=== PATIENT | female | born 1965 | race Caucasian/White ===

== ENCOUNTER 2019-03-24 20:32 | Emergency (ER) | payer MEDICAID ==
[2019-03-24] MEDS ORDERED: Ketorolac 60 MG/2 ML SDV IM ONE (20:55)
--- NOTE | 2019-03-24 20:59 | EDM.PDOC ---
ED HPI GENERAL MEDICAL PROBLEM - General Chief Complaint: Back Pain or Injury Stated Complaint: BACK PAIN Time Seen by Provider: 03/24/19 20:49 Source of Information: Reports: Patient History Limitations: Reports: No Limitations - History of Present Illness INITIAL COMMENTS - FREE TEXT/NARRATIVE: HISTORY AND PHYSICAL: History of present illness: Patient is a 53-year-old female who presents to the ED today with concern of her tailbone injury that occurred this morning. Patient states she was pushing her mom up a ramp in a wheelchair when she had slipped and fell directly on her butt. Patient states initially she did not feel much pain but as the day has gone she's had worsening pain of her tailbone. Patient states the pain is directly in between her crack and hurts when she does present on her tailbone. Patient denies any loss or retention of bowel or bladder function or any saddle anesthesia. Patient denies any prior injury to the area. Patient denies fever, chills, chest pain, shortness of breath, or cough. Denies headache, neck stiff ness, change in vision, syncope, or near syncope. Denies nausea, vomiting, abdominal pain, diarrhea, constipation, or dysuria. Has not noted any blood in urine or stool. Patient has been eating and drinking appropriately. Review of systems: As per history of present illness and below otherwise all systems reviewed and negative. Past medical history: As per history of present illness and as reviewed below otherwise noncontributory. Surgical history: As per history of present illness and as reviewed below otherwise noncontributory. Social history: See social history for further information Family history: As per history of present illness and as reviewed below otherwise noncontributory. Physical exam: General: Patient is alert, oriented, and in no acute distress. Patient sitting comfortably on exam table. HEENT: Atraumatic, normocephalic, pupils equal and reactive bilaterally, negative for conjunctival pallor or scleral icterus, mucous membranes moist, TMs normal bilaterally, throat clear, neck supple, nontender, trachea midline. No drooling or trismus noted. No meningeal signs. No hot potato voice noted. Lungs: Clear to auscultation, breath sounds equal bilaterally, chest nontender. Heart: S1S2, regular rate and rhythm without overt murmur Abdomen: Soft, nondistended, nontender. Negative for masses or hepatosplenomegaly. Negative for costovertebral tenderness. Pelvis: Stable nontender. Genitourinary: Deferred. Rectal: Deferred. Skin: Intact, warm, dry. No lesions or rashes noted. Extremities/musculoskeletal: Negative for cords or calf pain. Neurovascular unremarkable. Negative pain to palpation of the spinous process of complete spine. Patient has full range of motion of cervical spine. Thoracic and lumbar spine range of motion is limited due to pain of the lumbar spine. Patient does have direct pain to palpation of the coccyx. No obvious deformities, step-offs, or crepitus noted of complete spine. Neuro: Awake, alert, oriented. Cranial nerves II through XII unremarkable. Cerebellum unremarkable. Motor and sensory unremarkable throughout. Exam nonfocal. Notes: Dr. Howard verbally involved in patient care. Discussed the importance for follow-up with a primary care provider. Voices understanding and is agreeable to plan of care. Denies any further questions or concerns at this time. Diagnostics: Coccyx x-ray, lumbar x-ray Therapeutics: Toradol Prescription: [place] #20 Impression: Transverse process fracture of L4 Plan: 1. Rest, ice, elevate the affected area. You can apply ice and/or heat 15 minutes on, 15 minutes off. 2. Tylenol and/or Ibuprofen as directed for pain management or discomfort. Take medications as prescribed for moderate to severe pain. Caution with function outside home and do not take and operate/drive machinery/equipment. 3. Follow up with your primary care provider / orthopedic provider as discussed. Return to the ED as needed and as discussed. Definitive disposition and diagnosis as appropriate pending reevaluation and review of above. Lower Back Pain Score (Numeric/FACES): 8 - Related Data Allergies Allergy/AdvReac Type Severity Reaction Status Date / Time No Known Allergies Allergy Verified 03/24/19 20:48 Home Meds: Home Meds . [No Known Home Meds] 03/24/19 [History] Past Medical History - Past Health History Medical/Surgical History: Denies Medical/Surgical History - Infectious Disease History Infectious Disease History: Reports: Measles Social & Family History - Tobacco Use Smoking Status *Q: Current Every Day Smoker Years of Tobacco use: 30 Packs/Tins Daily: 0.5 - Caffeine Use Caffeine Use: Reports: Coffee, Soda - Recreational Drug Use Recreational Drug Use: No ED ROS GENERAL - Review of Systems Review Of Systems: ROS reveals no pertinent complaints other than HPI. ED EXAM,LOWER BACK PAIN/INJURY - Physical Exam Exam: See Below (See dictation) Course - Vital Signs Last Recorded V/S: Last Vital Signs Temp 37.1 C 03/24/19 20:45 Pulse 85 03/24/19 20:45 Resp BP 161/101 H 03/24/19 20:45 Pulse Ox 96 03/24/19 20:45 - Orders/Labs/Meds Meds: Medications Discontinued Medications Generic Name Dose Route Start Last Admin Trade Name Caty PRN Reason Stop Dose Admin Ketorolac Tromethamine 60 mg 03/24/19 20:55 03/24/19 21:13 Toradol IM 03/24/19 20:56 60 mg ONETIME ONE Administration Departure - Departure Time of Disposition: 22:52 Disposition: Home, Self-Care 01 Clinical Impression: Lumbar transverse process fracture Qualifiers: Encounter type: initial encounter Fracture type: closed Qualified Code(s): S32.009A - Unspecified fracture of unspecified lumbar vertebra, initial encounter for closed fracture - Discharge Information Instructions: Transverse Process Fracture Referrals: Pedro Stark MD [Primary Care Provider] - Forms: ED Department Discharge Additional Instructions: The following information is given to patients seen in the emergency department who are being discharged to home. This information is to outline your options for follow-up care. We provide all patients seen in our emergency department with a follow-up referral. The need for follow-up, as well as the timing and circumstances, are variable depending upon the specifics of your emergency department visit. If you don't have a primary care physician on staff, we will provide you with a referral. We always advise you to contact your personal physician following an emergency department visit to inform them of the circumstance of the visit and for follow-up with them and/or the need for any referrals to a consulting specialist. The emergency department will also refer you to a specialist when appropriate. This referral assures that you have the opportunity for follow-up care with a specialist. All of these measure are taken in an effort to provide you with optimal care, which includes your follow-up. Under all circumstances we always encourage you to contact your private physician who remains a resource for coordinating your care. When calling for follow-up care, please make the office aware that this follow-up is from your recent emergency room visit. If for any reason you are refused follow-up, please contact the [facility] Emergency Department at and asked to speak to the emergency department charge nurse. [facility] [address] [place] [address] [address] 1. Rest, ice, elevate the affected area. You can apply ice and/or heat 15 minutes on, 15 minutes off. 2. Tylenol and/or Ibuprofen as directed for pain management or discomfort. Take medications as prescribed for moderate to severe pain. Caution with function outside home and do not take and operate/drive machinery/equipment. 3. Follow up with your primary care provider / orthopedic provider as discussed. Return to the ED as needed and as discussed.
--- NOTE | 2019-03-24 21:51 | CR ---
Indication: Fall Technique: Four views of the sacrum and coccyx Comparison: None available Findings/Impression. : No displaced fracture seen. No dislocation. Apparent sclerosis adjacent to the right sacroiliac joint may be reactive. Patent sacroiliac joints. Pelvic phleboliths. Dictated by Wilbert Molina MD @ 03/24/2019 9:51:11 PM Dictated by: Wilbert Molina MD @ 03/24/2019 21:51:16 (Electronically Signed)
--- NOTE | 2019-03-24 21:58 | CR ---
INDICATION: Fall TECHNIQUE: Lumbar spine 3 view. COMPARISON: None available FINDINGS/IMPRESSION: Unremarkable lumbar spine alignment. No significant compression deformity. Preserved disk spaces. An apparent fracture of the tip of the left L4 transverse process. A curvilinear lucency in the region of the right L2 transverse process tip could represent a fracture or may be related to overlying soft tissues. Correlate for focal tenderness. Hypertrophic degenerative changes in the lower lumbar facets. Few tiny anterior osteophytes. Dictated by Wilbert Molina MD @ 03/24/2019 9:55:39 PM Dictated by: Wilbert Molina MD @ 03/24/2019 21:55:44 (Electronically Signed)
== END 2019-03-24 23:19 | disposition home or self-care (01) ==
LOC: MW.ED 20:32
DX: S32.049A Unspecified fracture of fourth lumbar vertebra, initial encounter for closed fracture (principal); F17.210 Nicotine dependence, cigarettes, uncomplicated; W01.0XXA Fall on same level from slipping, tripping and stumbling without subsequent striking against object, initial encounter
CPT/HCPCS: 72100; 72220; 96372; 99284; J1885

== ENCOUNTER 2019-12-04 20:04 | Inpatient (IN) | payer MEDICAID ==
[2019-12-04] MEDS ORDERED: Sodium Chloride 0.9% 1,000 ML IV ONE (20:12)
[2019-12-04] MEDS ORDERED: Diltiazem 25 MG/5 ML SDV IVPUSH ONE (20:20)
[2019-12-04 20:42] LABS: BLOOD UREA NITROGEN,BUN 9 mg/dL (7.0-18.0); CARBON DIOXIDE,CO2 28.8 mmol/L (21.0-32.0); CHLORIDE,CL 103 mmol/L (98-107); GLUCOSE RANDOM 129 mg/dL (74-106); POTASSIUM,K 4.4 mmol/L (3.5-5.1); SODIUM,NA 139 mmol/L (136-145)
--- NOTE | 2019-12-04 20:56 | CR ---
Chest: Portable view of the chest was obtained. Comparison: No prior chest x-ray. Heart size is normal. Upper mediastinum is normal. Lungs show no acute parenchymal change. Bony structures are grossly intact. Impression: 1. Nothing acute is appreciated on portable chest x-ray. Diagnostic code #1 This report was dictated in Mountain Standard Time
--- NOTE | 2019-12-04 21:37 | EDM.PDOC ---
ED HPI GENERAL MEDICAL PROBLEM - General Chief Complaint: Cardiovascular Problem Stated Complaint: HEART RATE,BLURRY VISION Time Seen by Provider: 12/04/19 20:10 Source of Information: Reports: Patient History Limitations: Reports: No Limitations - History of Present Illness INITIAL COMMENTS - FREE TEXT/NARRATIVE: 54-year-old female presents to the emergency room with rapid heart rate. Patient patient was very anxious had positive chest pain shortness of breath. Onset: Today Duration: Hour(s):, Heavy Location: Reports: Chest Quality: Reports: Pressure Severity: Moderate Improves with: Reports: None Worsens with: Reports: None Associated Symptoms: Reports: No Other Symptoms chest Pain Score (Numeric/FACES): 4 - Related Data Allergies Allergy/AdvReac Type Severity Reaction Status Date / Time No Known Allergies Allergy Verified 12/04/19 20:11 Home Meds: Home Meds . [No Known Home Meds] 03/24/19 [History] Past Medical History - Past Health History Medical/Surgical History: Denies Medical/Surgical History - Infectious Disease History Infectious Disease History: Reports: Measles - Past Surgical History Musculoskeletal Surgical History: Reports: Arthroscopic Knee Social & Family History - Family History Family Medical History: Noncontributory - Tobacco Use Smoking Status *Q: Current Every Day Smoker Years of Tobacco use: 30 Packs/Tins Daily: 1 - Caffeine Use Caffeine Use: Reports: Coffee, Soda - Recreational Drug Use Recreational Drug Use: No ED ROS GENERAL - Review of Systems Review Of Systems: Comprehensive ROS is negative, except as noted in HPI. Constitutional: Reports: No Symptoms, Weakness HEENT: Reports: No Symptoms Respiratory: Reports: No Symptoms Cardiovascular: Reports: Lightheadedness Endocrine: Reports: No Symptoms GI/Abdominal: Reports: No Symptoms : Reports: No Symptoms Musculoskeletal: Reports: No Symptoms Skin: Reports: No Symptoms Neurological: Reports: No Symptoms Psychiatric: Reports: No Symptoms Hematologic/Lymphatic: Reports: No Symptoms ED EXAM, GENERAL - Physical Exam Exam: See Below Free Text/Narrative:: This 54-year-old female with a rapid heart rate in the 178 in A. fib. Physical exam HEENT is normal Chest normal S1-S2 rapid rate Lungs clear to auscultation Abdomen soft nontender General Appearance: Alert, WD/WN, No Apparent Distress Eye Exam: Bilateral Eye: Normal Fundi, Normal Inspection, PERRL Ear Exam: Bilateral Ear: Auricle Normal, Canal Normal, TM normal Nose: Normal Inspection Throat/Mouth: Normal Inspection, Normal Lips, Normal Voice, No Airway Compromise Head: Atraumatic, Normocephalic Neck: Normal Inspection, Supple, Non-Tender, Full Range of Motion Respiratory/Chest: No Respiratory Distress, Lungs Clear, Normal Breath Sounds, No Accessory Muscle Use, Chest Non-Tender Cardiovascular: No Edema, No Murmur, Tachycardia, Irregularly Irregular GI/Abdominal: Normal Bowel Sounds, Soft, Non-Tender, No Organomegaly, No Abnormal Bruit, No Mass (Female) Exam: Deferred Rectal (Female) Exam: Deferred Back Exam: Normal Inspection, Full Range of Motion Extremities: Normal Inspection, Normal Range of Motion, Non-Tender, No Pedal Edema Neurological: Alert, Oriented, CN II-XII Intact, Normal Cognition Psychiatric: Normal Affect, Normal Mood Skin Exam: Warm, Dry, Intact, Normal Color, No Rash Lymphatic: No Adenopathy EKG INTERPRETATION Rhythm: A-Fib (A. fib rate of 180 after medication the rate is 80 but patient still in A. fib) Course - Vital Signs Last Recorded V/S: Last Vital Signs Temp 97 F 12/04/19 20:04 Pulse 82 12/04/19 20:57 Resp 16 12/04/19 20:57 BP 147/80 H 12/04/19 20:57 Pulse Ox 97 12/04/19 20:57 - Orders/Labs/Meds Orders: Active Orders 24 hr Category Date Time Status EKG Documentation Completion [RC] STAT Care 12/04/19 20:20 Active Labs: Laboratory Tests 12/04/19 12/04/19 Range/Units 20:10 20:10 WBC 9.80 (4.0-11.0) K/uL RBC 4.94 (4.30-5.90) M/uL Hgb 16.5 H (12.0-16.0) g/dL Hct 47.4 H (36.0-46.0) % MCV 96.0 (80.0-98.0) fL MCH 33.4 H (27.0-32.0) pg MCHC 34.8 (31.0-37.0) g/dL RDW Std Deviation 43.7 (28.0-62.0) fl RDW Coeff of Daysi 13 (11.0-15.0) % Plt Count 206 (150-400) K/uL MPV 11.20 (7.40-12.00) fL Neut % (Auto) 45.8 L (48.0-80.0) % Lymph % (Auto) 39.9 (16.0-40.0) % [place] % (Auto) 7.6 (0.0-15.0) % Eos % (Auto) 6.3 (0.0-7.0) % Baso % (Auto) 0.4 (0.0-1.5) % Neut # (Auto) 4.5 (1.4-5.7) K/uL Lymph # (Auto) 3.9 H (0.6-2.4) K/uL [place] # (Auto) 0.7 (0.0-0.8) K/uL Eos # (Auto) 0.6 (0.0-0.7) K/uL Baso # (Auto) 0.0 (0.0-0.1) K/uL Nucleated RBC % 0.0 /100WBC Nucleated RBCs # 0 K/uL Sodium 139 (136-145) mmol/L Potassium 4.4 (3.5-5.1) mmol/L Chloride 103 (98-107) mmol/L Carbon Dioxide 28.8 (21.0-32.0) mmol/L BUN 9 (7.0-18.0) mg/dL Creatinine 0.8 (0.6-1.0) mg/dL Est Cr Clr Drug Dosing 84.99 mL/min Estimated GFR (MDRD) > 60.0 ml/min Glucose 129 H (74-106) mg/dL Calcium 8.9 (8.5-10.1) mg/dL Total Bilirubin 0.4 (0.2-1.0) mg/dL AST 81 H (15-37) IU/L ALT 92 H (14-63) IU/L Alkaline Phosphatase 179 H (46-116) U/L Troponin I < 0.050 (0.000-0.056) ng/mL Total Protein 7.9 (6.4-8.2) g/dL Albumin 3.6 (3.4-5.0) g/dL Globulin 4.3 H (2.6-4.0) g/dL Albumin/Globulin Ratio 0.8 L (0.9-1.6) Meds: Medications Discontinued Medications Generic Name Dose Route Start Last Admin Trade Name Freq PRN Reason Stop Dose Admin Diltiazem HCl 25 mg 12/04/19 20:20 12/04/19 20:30 Diltiazem IVPUSH 12/04/19 20:21 25 mg ONETIME ONE Administration Sodium Chloride 1,000 mls @ 1,000 mls/hr 12/04/19 20:12 12/04/19 20:30 Normal Saline IV 12/04/19 21:11 1,000 mls/hr .Bolus ONE Administration Departure - Departure Time of Disposition: 21:40 Disposition: Admitted As Inpatient 67 Condition: Good Clinical Impression: New onset atrial fibrillation Referrals: PCP,Unknown [Primary Care Provider] - Sepsis Event Note - Evaluation Sepsis Screening Result: No Definite Risk - Focused Exam Vital Signs: Vital Signs Temp Pulse Resp BP Pulse Ox 12/04/19 20:57 82 16 147/80 H 97 12/04/19 20:36 109 H 20 124/98 H 97 12/04/19 20:04 97 F 116 H 20 179/97 H 97 Date Exam was Performed: 12/04/19 Time Exam was Performed: 21:31 - My Orders Last 24 Hours: My Active Orders 12/04/19 20:20 EKG Documentation Completion [RC] STAT - Assessment/Plan Last 24 Hours: My Active Orders 12/04/19 20:20 EKG Documentation Completion [RC] STAT
--- NOTE | 2019-12-04 23:48 | PCM.HP.2 ---
H&P History of Present Illness - General Date of Service: 12/05/19 Admit Problem/Dx: Admission Diagnosis/Problem Admission Diagnosis/Problem Atrial fibrillation - History of Present Illness Initial Comments - Free Text/Narative: 54 yo female who presented to the ED with complaint of chest palpitations. The episode started tonight while sitting down. She felt her heart racing with pounding beats. She felt short of breath and lightheaded. It started to come down on its own when she was seen in the ED. In the ED she was noted to be in atrial fibrillation with HR in the 180s. She was given IV diltiazem and a liter of fluid which slowed down her heart rate. She reports have a brief episode of palpitations later this week. She reports drinking 32 oz of coffee in the morning and 5 cans of Mountain dew at night. chest Pain Score (Numeric/FACES): 4 - Related Data Allergies/Adverse Reactions: Allergies Allergy/AdvReac Type Severity Reaction Status Date / Time No Known Allergies Allergy Verified 12/04/19 22:50 Home Medications: Home Meds Aspirin 81 mg PO DAILY tab.chew 12/05/19 [Rx] Metoprolol Tartrate [Lopressor] 50 mg PO BID #60 tablet 12/05/19 [Rx] Past Medical History - Past Health History Medical/Surgical History: Denies Medical/Surgical History - Infectious Disease History Infectious Disease History: Reports: Measles - Past Surgical History Musculoskeletal Surgical History: Reports: Arthroscopic Knee Social & Family History - Family History Family Medical History: Noncontributory - Tobacco Use Smoking Status *Q: Current Every Day Smoker Years of Tobacco use: 30 Packs/Tins Daily: 0.5 Second Hand Smoke Exposure: No - Caffeine Use Caffeine Use: Reports: Coffee, Soda - Recreational Drug Use Recreational Drug Use: No H&P Review of Systems - Review of Systems: Review Of Systems: See Below Exam - Exam Exam: See Below - Vital Signs Vital Signs: Last Vital Signs Temp 36.6 C 12/04/19 22:52 Pulse 91 12/04/19 22:52 Resp 16 12/04/19 22:52 BP 127/77 12/04/19 22:52 Pulse Ox 97 12/04/19 22:52 Weight: 96.6 kg - Exam General: Alert, Oriented HEENT: Mucosa Moist & [place] Neck: Supple Lungs: Clear to Auscultation, Normal Respiratory Effort Cardiovascular: Regular Rate, Irregular Rhythm GI/Abdominal Exam: Normal Bowel Sounds, Soft, No Distention Extremities: Non-Tender, No Pedal Edema Skin: Warm, Dry, Intact - Patient Data Lab Results Last 24 hrs: Laboratory Results - last 24 hr 12/04/19 12/04/19 12/04/19 Range/Units 20:10 20:10 20:10 WBC 9.80 (4.0-11.0) K/uL RBC 4.94 (4.30-5.90) M/uL Hgb 16.5 H (12.0-16.0) g/dL Hct 47.4 H (36.0-46.0) % MCV 96.0 (80.0-98.0) fL MCH 33.4 H (27.0-32.0) pg MCHC 34.8 (31.0-37.0) g/dL RDW Std Deviation 43.7 (28.0-62.0) fl RDW Coeff of Daysi 13 (11.0-15.0) % Plt Count 206 (150-400) K/uL MPV 11.20 (7.40-12.00) fL Neut % (Auto) 45.8 L (48.0-80.0) % Lymph % (Auto) 39.9 (16.0-40.0) % [place] % (Auto) 7.6 (0.0-15.0) % Eos % (Auto) 6.3 (0.0-7.0) % Baso % (Auto) 0.4 (0.0-1.5) % Neut # (Auto) 4.5 (1.4-5.7) K/uL Lymph # (Auto) 3.9 H (0.6-2.4) K/uL [place] # (Auto) 0.7 (0.0-0.8) K/uL Eos # (Auto) 0.6 (0.0-0.7) K/uL Baso # (Auto) 0.0 (0.0-0.1) K/uL Nucleated RBC % 0.0 /100WBC Nucleated RBCs # 0 K/uL Sodium 139 (136-145) mmol/L Potassium 4.4 (3.5-5.1) mmol/L Chloride 103 (98-107) mmol/L Carbon Dioxide 28.8 (21.0-32.0) mmol/L BUN 9 (7.0-18.0) mg/dL Creatinine 0.8 (0.6-1.0) mg/dL Est Cr Clr Drug Dosing 84.99 mL/min Estimated GFR (MDRD) > 60.0 ml/min Glucose 129 H (74-106) mg/dL Calcium 8.9 (8.5-10.1) mg/dL Magnesium 1.8 (1.8-2.4) mg/dL Total Bilirubin 0.4 (0.2-1.0) mg/dL AST 81 H (15-37) IU/L ALT 92 H (14-63) IU/L Alkaline Phosphatase 179 H (46-116) U/L Troponin I < 0.050 (0.000-0.056) ng/mL Total Protein 7.9 (6.4-8.2) g/dL Albumin 3.6 (3.4-5.0) g/dL Globulin 4.3 H (2.6-4.0) g/dL Albumin/Globulin Ratio 0.8 L (0.9-1.6) Result Diagrams: 12/05/19 04:42 12/05/19 04:42 Sepsis Event Note - Evaluation Sepsis Screening Result: No Definite Risk - Focused Exam Vital Signs: Vital Signs Temp Pulse Resp BP Pulse Ox 12/04/19 22:52 36.6 C 91 16 127/77 97 12/04/19 20:57 82 16 147/80 H 97 12/04/19 20:36 109 H 20 124/98 H 97 12/04/19 20:04 36.1 C 116 H 20 179/97 H 97 Date Exam was Performed: 12/05/19 Time Exam was Performed: 11:36 Problem List Initiated/Reviewed/Updated: Yes Orders Last 24hrs: Active Orders 24 hr Category Date Time Status Admission Status [Patient Status] [ADT] Stat ADT 12/04/19 21:41 Active EKG Documentation Completion [RC] STAT Care 12/04/19 20:20 Active Telemetry Monitoring [Cardiac Monitoring] [RC] . Care 12/04/19 21:57 Active DIRECTED BASIC METABOLIC PANEL,BMP [CHEM] AM Lab 12/05/19 05:11 Ordered CBC WITH AUTO DIFF [HEME] AM Lab 12/05/19 05:11 Ordered GLYCOSYLATED HEMOGLOBIN,HGBA1C [CHEM] AM Lab 12/05/19 05:11 Ordered TROPONIN I [CHEM] Q6H Lab 12/05/19 02:00 Ordered TROPONIN I [CHEM] Q6H Lab 12/05/19 08:00 Ordered Metoprolol Tartrate [Lopressor] Med 12/04/19 23:45 Ordered 50 mg PO Q12H Assessment/Plan Comment:: 54 yo female admitted for atrial fibrillation with RVR. She was started on metoprolol 50mg last night and her heart rate has been in atrial flutter/ fibrillation overnight with the heart rate in the 50s-90s overnight. This morning she is feeling well and requesting discharge. She was discharged home on metoprolol 50mg BID and Aspirin. She is to follow up with Dr. Elder and Dr. Stark. She was counseled on the need to quit tobacco and reduce her sugar soda consumption.
[2019-12-05] MEDS: Metoprolol Tartrate 50 MG Tab PO SCH ×2 (00:27→08:01)
[2019-12-05 05:38] LABS: BLOOD UREA NITROGEN,BUN 11 mg/dL (7.0-18.0); CARBON DIOXIDE,CO2 24.8 mmol/L (21.0-32.0); CHLORIDE,CL 106 mmol/L (98-107); GLUCOSE RANDOM 107 mg/dL (74-106); POTASSIUM,K 3.9 mmol/L (3.5-5.1); SODIUM,NA 141 mmol/L (136-145)
[2019-12-05 05:43] LABS: HEMOGLOBIN A1C 6.3 % (4.5-6.2)
[2019-12-05] MEDS ORDERED: Aspirin 81 MG Tab.Chew PO SCH (09:00)
== END 2019-12-05 13:00 | disposition home or self-care (01) | DRG 310 ==
LOC: MW.ED 20:04 → MW.MS 22:01
PROVIDERS: ADMIT Internal Medicine; ATTEND Internal Medicine
DX: I48.91 Unspecified atrial fibrillation (principal); F17.210 Nicotine dependence, cigarettes, uncomplicated; Z79.82 Long term (current) use of aspirin; Z79.899 Other long term (current) drug therapy
CPT/HCPCS: 36415; 71045; 71045-26; 80048; 80053; 80061; 83036; 83735; 84484; 85025; 93005; 96361; 96374; 99283; 99285-25; A9270-GY; J3490; J7030

== ENCOUNTER 2020-12-05 13:21 | Emergency (ER) | payer MEDICAID ==
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
--- NOTE | 2020-12-05 15:07 | CR ---
INDICATION: Medial pain, trauma 12/03/2020 TECHNIQUE: Three views right knee COMPARISON: None FINDINGS: Bones: Alignment is normal. No fractures or bone lesions. Joint spaces: Degenerative changes medial and patellofemoral compartments. Marginal osteophytes involving all 3 compartments. Joint effusion. Soft tissues: Unremarkable. IMPRESSION: No evidence of acute trauma. Multi compartment degenerative changes with joint effusion. Dictated by Yves Lo MD @ Dec 05 2020 3:05PM Signed by Dr. Yves Lo @ Dec 05 2020 3:05PM
== END 2020-12-05 15:15 | disposition home or self-care (01) ==
LOC: MW.ED 13:21
DX: S86.911A Strain of unspecified muscle(s) and tendon(s) at lower leg level, right leg, initial encounter (principal); I48.91 Unspecified atrial fibrillation; I10 Essential (primary) hypertension; Z87.891 Personal history of nicotine dependence; X50.9XXA Other and unspecified overexertion or strenuous movements or postures, initial encounter
CPT/HCPCS: 73562-26-RT; 73562-RT; 99283; 99283-25

== ENCOUNTER 2020-12-25 11:45 | Inpatient (IN) | payer MEDICAID ==
[~2020-12-25 11:45] MED LIST: Famotidine 20 MG/2 ML SDV IVPUSH SCH; Lactated Ringers 1,000 ML IV SCH; Ropivacaine 49.25 ML, Ketorolac 30 MG, EPINEPHrine 0.5 MG, cloNIDine 80 MCG in Sodium C... INJECT SCH; Scopolamine 1.5 MG Transdermal Patch TRDERM SCH; ceFAZolin 2 GM in Premix Bag 1 BAG IV SCH
[2021-01-01] MEDS ORDERED: Famotidine 20 MG/2 ML SDV IVPUSH SCH (06:00)
[2021-01-01] MEDS ORDERED: Lactated Ringers 1,000 ML IV SCH (06:00)
[2021-01-01] MEDS ORDERED: Scopolamine 1.5 MG Transdermal Patch TRDERM SCH (06:00)
[2021-01-01] MEDS ORDERED: Ropivacaine 49.25 ML, Ketorolac 30 MG, EPINEPHrine 0.5 MG, cloNIDine 80 MCG in Sodium C... INJECT SCH (06:00)
[2021-01-01] MEDS ORDERED: ceFAZolin 2 GM in Premix Bag 1 BAG IV SCH (08:00)
[2021-01-01] MEDS ORDERED: Scopolamine 1.5 MG Transdermal Patch ONE (09:58)
[2021-01-01] MEDS ORDERED: Famotidine 20 MG/2 ML SDV ONE (10:02)
[2021-01-01] MEDS ORDERED: Propofol 200 MG/20 ML SDV ONE (10:12)
[2021-01-01] MEDS ORDERED: fentaNYL 100 MCG/2 ML SDV ONE (10:12)
[2021-01-01] MEDS ORDERED: Midazolam 1 MG/ML 2 ML SDV ONE (10:12)
--- NOTE | 2021-01-01 11:54 | PCM.PREANE ---
Preanesthetic Assessment - Anesthesia/Transfusion/Family Hx Anesthesia History: Prior Anesthesia Without Reaction Family History of Anesthesia Reaction: No Transfusion History: No Prior Transfusion(s) Intubation History: Unknown - Review of Systems General: No Symptoms Pulmonary: No Symptoms Cardiovascular: No Symptoms Gastrointestinal: No Symptoms Neurological: No Symptoms Other: Reports: None - Physical Assessment Vital Signs: Last Vital Signs Temp 36.6 C 01/01/21 11:24 Pulse 69 01/01/21 11:24 Resp 16 01/01/21 11:24 BP 130/81 01/01/21 11:24 Pulse Ox 96 01/01/21 11:24 Height: 5 ft 9 in Weight: 95.708 kg ASA Class: 2 Mental Status: Alert & Oriented x3 Airway Class: Mallampati = 1 Dentition: Reports: Dentures (upper and lower, well glued in) Thyro-Mental Finger Breadths: 3 Mouth Opening Finger Breadths: 3 ROM/Head Extension: Full Lungs: Clear to Auscultation, Normal Respiratory Effort Cardiovascular: Regular Rate, Regular Rhythm - Allergies Allergies/Adverse Reactions: Allergies Allergy/AdvReac Type Severity Reaction Status Date / Time No Known Allergies Allergy Verified 12/23/20 08:35 - Blood Blood Available: No - Anesthesia Plan Pre-Op Medication Ordered: None - Acknowledgements Anesthesia Type Planned: Spinal (femoral block for postoperative pain control) Pt an Appropriate Candidate for the Planned Anesthesia: Yes Alternatives and Risks of Anesthesia Discussed w Pt/Guardian: Yes Pt/Guardian Understands and Agrees with Anesthesia Plan: Yes PreAnesthesia Questionnaire - Past Health History Medical/Surgical History: Denies Medical/Surgical History HEENT History: Reports: Other (See Below) Other HEENT History: wears glasses/contacts, has top & bottom dentures Cardiovascular History: Reports: Afib, Hypertension Other Cardiovascular History: 1 episode of A-fib approx 2 years ago Respiratory History: Reports: None Gastrointestinal History: Reports: None Genitourinary History: Reports: None 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: 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: None Musculoskeletal History: Reports: Arthritis Neurological History: Reports: None Psychiatric History: Reports: None Endocrine/Metabolic History: Reports: Obesity/BMI 30+ (BMI 31.2) Hematologic History: Reports: None Immunologic History: Reports: None Oncologic (Cancer) History: Reports: None Dermatologic History: Reports: None - Infectious Disease History Infectious Disease History: Reports: Measles - Past Surgical History Head Surgeries/Procedures: Reports: None HEENT Surgical History: Reports: Tonsillectomy Cardiovascular Surgical History: Reports: None Respiratory Surgical History: Reports: None GI Surgical History: Reports: None Female Surgical History: Reports: Other (See Below) Other Female Surgeries/Procedures: hx of diagnostic laparoscopy Endocrine Surgical History: Reports: None Neurological Surgical History: Reports: None Musculoskeletal Surgical History: Reports: Arthroscopic Knee (rt. knee '93) Oncologic Surgical History: Reports: None Dermatological Surgical History: Reports: None - SUBSTANCE USE Tobacco Use Status *Q: Former Tobacco User (quit 40 days ago) Tobacco Use Within Last Twelve Months: Cigarettes - HOME MEDS Home Medications: Home Meds Acetaminophen [Tylenol] 2 tab PO ASDIRECTED PRN 12/23/20 [History] Aspirin [Adult Aspirin Regimen] 81 mg PO DAILY 12/23/20 [History] Metoprolol Tartrate 100 mg PO DAILY 12/23/20 [History] - CURRENT (IN HOUSE) MEDS Current Meds: Current Medications Famotidine (Pepcid) 40 mg IVPUSH ONARRIVE KELSEY Lactated Ringer's (Ringers, Lactated) 1,000 mls @ 100 mls/hr IV ASDIRECTED KELSEY Last Admin: 01/01/21 11:29 Dose: 100 mls/hr Documented by: Cefazolin Sodium/Dextrose 2 gm (/ Premix) 50 mls @ 100 mls/hr IV ONCALL KELSEY Ropivacaine 49.25 ml/Ketorolac Tromethamine 30 mg/Epinephrine HCl 0.5 mg/Clonidine HCl 80 mcg/ Sodium Chloride 75 mls @ 50 mls/sec INJECT ASDIRECTED KELSEY Scopolamine (Transderm-Scop) 1.5 mg TRDERM ONARRIVE KELSEY Discontinued Medications Famotidine (Pepcid) 40 mg IVPUSH ONARRIVE KELSEY Famotidine (Pepcid) Confirm Administered Dose 40 mg .ROUTE .STK-MED ONE Stop: 01/01/21 10:03 Last Admin: 01/01/21 11:32 Dose: 40 mg Documented by: Fentanyl (Sublimaze) Confirm Administered Dose 100 mcg .ROUTE .STK-MED ONE Stop: 01/01/21 10:13 Ropivacaine 49.25 ml/Ketorolac Tromethamine 30 mg/Epinephrine HCl 0.5 mg/Clonidine HCl 80 mcg/ Sodium Chloride 75 mls @ 50 mls/sec INJECT ASDIRECTED KELSEY Cefazolin Sodium/Dextrose 2 gm (/ Premix) 50 mls @ 100 mls/hr IV ONCALL KELSEY Lactated Ringer's (Ringers, Lactated) 1,000 mls @ 100 mls/hr IV ASDIRECTED KELSEY Lidocaine HCl (Xylocaine-Mpf 1%) Confirm Administered Dose 5 ml .ROUTE .STK-MED ONE Stop: 01/01/21 10:13 Midazolam HCl (Versed 1 Mg/Ml) Confirm Administered Dose 2 mg .ROUTE .STK-MED ONE Stop: 01/01/21 10:13 Propofol (Diprivan 20 Ml) Confirm Administered Dose 200 mg .ROUTE .STK-MED ONE Stop: 01/01/21 10:13 Scopolamine (Transderm-Scop) 1.5 mg TRDERM ONARRIVE [facility] Scopolamine (Transderm-Scop) Confirm Administered Dose 1.5 mg .ROUTE .STK-MED ONE Stop: 01/01/21 09:59 Last Admin: 01/01/21 11:30 Dose: 1.5 mg Documented by: Tranexamic Acid (Cyklokapron) 1,000 mg TOP ASDIRECTED ONE Stop: 12/25/20 06:01 Tranexamic Acid (Cyklokapron) 1,000 mg TOP ASDIRECTED ONE Stop: 01/01/21 06:01
[2021-01-01] MEDS ORDERED: Bupivacaine 0.5% 30 ML SDV ONE (12:59)
[2021-01-01] MEDS ORDERED: Vancomycin 1 GM SDV ONE (13:57)
--- NOTE | 2021-01-01 14:08 | PCM.SN.2 ---
- Free Text/Narrative Note: Spinal done in sitting position with a sterile technique. The patient's back was prepped with chlorhexidine and draped. l3-l3, space with 1% lidocaine 3 ml for skin infiltration. 25 gauge pencan needle +csf, no heme no paresthesias. Then hyperbaric bupivacaine 1.4 ml given. The patient tolerated the procedure well. She communicating throughout the entire procedure. [id number] procedure time.
[2021-01-01] MEDS ORDERED: fentaNYL 100 MCG/2 ML SDV IVPUSH PRN (14:12)
[2021-01-01] MEDS ORDERED: Naloxone 0.4 MG/ML Syringe IVPUSH PRN (14:12)
[2021-01-01] MEDS ORDERED: EPINEPHrine 1:10,000 1 MG/10 ML Syringe IVPUSH PRN (14:12)
[2021-01-01] MEDS ORDERED: Albuterol 0.083% 2.5 MG/3 ML Neb Soln NEB PRN (14:12)
[2021-01-01] MEDS ORDERED: Ondansetron 4 MG/2 ML SDV IVPUSH PRN ×2 (14:12→15:10)
[2021-01-01] MEDS ORDERED: Atropine 0.1 MG/ML 10 ML Syringe IVPUSH PRN ×2 (14:12)
[2021-01-01] MEDS ORDERED: 50% Dextrose in Water 50 ML Syringe IVPUSH PRN (14:12)
[2021-01-01] MEDS ORDERED: Ketorolac 30 MG/ML SDV ONE (15:01)
--- NOTE | 2021-01-01 15:02 | PCM.OPNOTE ---
- General Post-Op/Procedure Note Date of Surgery/Procedure: 01/01/21 Operative Procedure(s): r tka Pre Op Diagnosis: right knee primary oa Post-Op Diagnosis: Same Anesthesia Technique: Combo Spinal/Epidural, Local Primary Surgeon: Don Chambers Stull Hewer: Ana Zamarripa EBL in mLs: 50 Complications: None Condition: Good
[2021-01-01] MEDS: Ketorolac 30 MG/ML SDV IVPUSH SCH ×2 (15:05→21:57)
[2021-01-01] MEDS ORDERED: diphenhydrAMINE 25 MG Cap PO PRN (15:10)
[2021-01-01] MEDS ORDERED: Sodium Chloride 0.9% 2.5 ML Syringe FLUSH PRN (15:10)
[2021-01-01] MEDS ORDERED: Bisacodyl 10 MG Supp RECTAL PRN (15:10)
[2021-01-01] MEDS ORDERED: Aluminum Hydroxide/Magnesium Hydroxide/Simethicone Susp 30 ML Cup PO PRN (15:10)
[2021-01-01] MEDS ORDERED: Morphine 2 MG/ML SYRINGE IVPUSH PRN (15:10)
[2021-01-01] MEDS ORDERED: traMADol 50 MG Tab PO PRN (15:10)
[2021-01-01] MEDS ORDERED: Sodium Chloride 0.9% 10 ML Syringe FLUSH PRN (15:10)
[2021-01-01] MEDS ORDERED: Docusate Sodium 100 MG Cap PO PRN (15:10)
[2021-01-01] MEDS: HYDROmorphone 2 MG/ML Syringe IVPUSH PRN ×2 (15:41→15:48)
--- NOTE | 2021-01-01 16:10 | PCM.POSTAN ---
POST ANESTHESIA ASSESSMENT - VITAL SIGNS Vital Signs: Last Vital Signs Temp 36.4 C 01/01/21 15:10 Pulse 64 01/01/21 16:05 Resp 12 01/01/21 16:05 BP 133/75 01/01/21 16:05 Pulse Ox 97 01/01/21 16:05 - RESPIRATORY Respiratory Status: Respiratory Rate WNL - CARDIOVASCULAR CV Status: Pulse Rate WNL - GASTROINTESTINAL GI Status: No Symptoms - POST OP HYDRATION Hydration Status: Adequate & Stable
--- NOTE | 2021-01-01 16:16 | PCM.SN.2 ---
- Free Text/Narrative Note: Time out done. Fentanyl 50 mcg IVP given. Right Femoral Nerve done with a sterile technique. Right Inguinal Area prepped with chlorhexidine and sterile draped. 1% lidocaine 2 ml for skin infiltration. 20 gauge 4 inch insulated stimuplex needle. right patella twitch. 0.53 mA. 0.5 % Bupivacaine given 20 ml. Aspirated slowly in divided doses of 5 ml. Aspiration negative with all doses. Patient able to communicate throughout the entire procedure. She tolerated the procedure well. Time 3818-3218
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
--- NOTE | 2021-01-01 18:13 | CR ---
Indication: Total knee arthroplasty. Technique: Right knee, two views. Comparison: None available. Findings: Right knee arthroplasty appears appropriately positioned. Anterior soft tissue gas and skin guy, consistent with recent surgery. Osseous structures as imaged are otherwise unremarkable. Impression: Expected changes status post right knee arthroplasty. Dictated by Vin Vyas MD @ Jan 01 2021 6:10PM Signed by Dr. Vin Vyas @ Jan 01 2021 6:11PM
[2021-01-01] MEDS: Acetaminophen/oxyCODONE 325-5 MG Tab PO PRN (18:50)
--- NOTE | 2021-01-01 19:15 | OR ---
SURGEON: Don Chambers DATE OF PROCEDURE: 01/01/2021 PREOPERATIVE DIAGNOSIS: Right knee primary osteoarthritis. POSTOPERATIVE DIAGNOSIS: Right knee primary osteoarthritis. PROCEDURE: Right knee total knee arthroplasty. PRIMARY SURGEON: Don Chambers DO CHORE TENDER: KARI Anglin ROLE OF CHORE TENDER: Nurse practitioner, KARI Anglin, played an essential role in assisting in this case, helping to position the patient, retract structures as needed, as well as suturing and cutting sutures as indicated. Her presence improved patient's safety and decreased operative time. ANESTHESIA: Spinal and conscious sedation. FLUID: Lactated Ringer's solution. ESTIMATED BLOOD LOSS: 50 mL. COMPLICATIONS: None. SPECIMEN: None. DISCHARGE DISPOSITION: Stable to PACU. INSTRUMENTATION: [place] [employer] size 5 femur, size 5 tibial base plate, 32 mm dome polyethylene patella, and size 11 posterior stabilized tibial polyethylene insert. HISTORY AND INDICATIONS FOR THE PROCEDURE: The patient is well known to me. She was seen in the clinic. She failed nonoperative treatment. Preoperative imaging confirmed the above-mentioned diagnosis. Risks and goals of the procedure were explained to the patient. Informed consent was obtained. DETAILS OF PROCEDURE: The patient was seen preoperatively by myself and the Anesthesia staff in the preoperative holding area where the operative site was marked. She was brought to the operative suite by Anesthesia staff where spinal sedation plus conscious sedation was administered. All extremities were found to be well padded. A well-padded tourniquet was placed on the right thigh. The right lower extremity was then prepped and draped in sterile manner. Time-out was called identifying the correct patient, the correct procedure, the correct site, and that antibiotics were given within appropriate period of time. The right lower extremity was exsanguinated. Tourniquet was raised to 250 mmHg, let down at 47 minutes during cementing. A midline incision was made three fingerbreadths proximal to the patella down to the medial aspect of the tibial tubercle. Bleeding was controlled with Bovie electrocautery. A medial parapatellar incision was then made. A full synovectomy was performed. The proximal medial tibia was then visualized and osteophytes removed using Bovie electrocautery and rongeur. The patella was everted. The knee was flexed. Circumferential osteophytes removed off the patella. A freehand saw cut was then made, this measured a 32. Three drill holes were then made and then the patella button was inserted. The knee was then again flexed. The distal femur was reamed. Intramedullary guide was then used at 8 mm cut, 5-degree valgus after pinning in place. We then removed the guide after cutting and then used a posterior condylar guide. This measured a 5. Multiple osteophytes had to be removed off the femur. The drill holes were made in the posterior condylar guide. A 5 chamfer block was then inserted. Collaterals were protected with sharp Hohmanns. Anterior, posterior, and chamfer cuts were then made. Our notch cutting block guide was then tapped into place and seated with pins. I then used a reciprocating saw to take out the notch. I then removed the notch and soft tissue with Bovie electrocautery. I then removed that guide. I then anteriorized the tibia with blunt Hohmann and protected the collaterals again and then used an extramedullary guide measuring 2 mm at the lateral tibial plateau and that she did have a valgus knee with severe wear on the lateral side. I then pinned this in place and then made my proximal tibial cut. After this had been accomplished, I then removed my guides and then used a laminar laminating press operator and removed the remainder of the menisci as well as posterior osteophytes. A large, approximately 3 cm diameter, osteophyte was removed from the posterior medial compartment. I removed posterior osteophytes, removed with curved osteotome. I then anteriorized the tibia again and then applied my #5 base plate, applied the tibial insert and femur. This provided good stability. So I removed all but the base plate component and then anteriorized the tibia again and then reamed the proximal tibia and tamped it. We then copiously irrigated with saline and dried the bone. We then cemented our components and placed in full extension with a 9 mm trial tibial base plate. I applied tranexamic acid and then let the tourniquet down at 47 minutes. After the cement had hardened, removed any extra cement, removed the trial tibia and then inserted an 11 with a post. I thought this provided better stability throughout range of motion, and I was expecting this due to the significant wear on the lateral tibial plateau. We then removed the tibial trial and then inserted my final tibial polyethylene insert. This provided excellent stability throughout range of motion. We then copiously irrigated with saline via pulse lavage and then saline with Betadine and then closed with two #5 [id number] Ethibond sutures. My dental assistant closed the parapatellar arthrotomy with #1 Stratafix followed by subcutaneous 0 Stratafix followed by skin guy, Betadine-soaked Adaptic, fluffs, and an Ramirez wrap. The patient was then allowed to go back to the PACU in stable condition. We did place a pillow under her right knee. I gave instructions to the floor to keep the pillow under the knee until the block wore off to make sure that we do not have a peroneal nerve palsy postsurgically due to the valgus knee. [id number] / MODL /[id number]
[2021-01-01] MEDS: ceFAZolin 2 GM in Premix Bag 1 BAG IV SCH (22:06)
[2021-01-02] MEDS: Acetaminophen/oxyCODONE 325-5 MG Tab PO PRN ×3 (01:02→12:22)
[2021-01-02] MEDS: Ketorolac 30 MG/ML SDV IVPUSH SCH (04:23)
[2021-01-02] MEDS: ceFAZolin 2 GM in Premix Bag 1 BAG IV SCH (06:35)
[2021-01-02 06:45] LABS: BLOOD UREA NITROGEN,BUN 17 mg/dL (7.0-18.0); CARBON DIOXIDE,CO2 25.9 mmol/L (21.0-32.0); CHLORIDE,CL 102 mmol/L (98-107); GLUCOSE RANDOM 136 mg/dL (74-106); POTASSIUM,K 5.1 mmol/L (3.5-5.1); SODIUM,NA 136 mmol/L (136-145)
[2021-01-02] MEDS ORDERED: Famotidine 20 MG Tab PO SCH (07:30)
--- NOTE | 2021-01-02 07:40 | PCM48HPAN ---
Post Anesthesia Note - EVALUATION WITHIN 48HRS OF ANESTHETIC Vital Signs in Normal Range: Yes Patient Participated in Evaluation: Yes Respiratory Function Stable: Yes Airway Patent: Yes Cardiovascular Function Stable: Yes Hydration Status Stable: Yes Pain Control Satisfactory: Yes (Reports adequate pain control. 8/10 when meds trough, down to 4/10 with med) Nausea and Vomiting Control Satisfactory: Yes (Taking PO well, denies N/V) Mental Status Recovered: Yes Vital Signs: Last Vital Signs Temp 35.9 C L 01/02/21 04:14 Pulse 57 L 01/02/21 04:14 Resp 16 01/02/21 04:14 BP 119/65 01/02/21 04:14 Pulse Ox 94 L 01/02/21 04:14
--- NOTE | 2021-01-02 08:42 | PCM.CONSN ---
- General Info Date of Service: 01/02/21 Subjective Update: Tolerating PO diet. Denies any fevers, chills, SOB, chest pain, palpitations, nausea or vomiting. - Patient Data Vitals - Most Recent: Last Vital Signs Temp 36.2 C 01/02/21 07:36 Pulse 62 01/02/21 07:36 Resp 16 01/02/21 07:36 BP 113/71 01/02/21 07:36 Pulse Ox 93 L 01/02/21 07:36 Weight - Most Recent: 95.708 kg I&O - Last 24 Hours: Intake & Output 01/01/21 01/02/21 01/02/21 22:59 06:59 14:59 Intake Total 2500 800 Output Total 1050 Balance 2500 -250 Lab Results Last 24 Hours: Laboratory Results - last 24 hr 01/01/21 01/01/21 01/02/21 Range/Units 11:20 11:45 06:16 Hgb 12.8 (12.0-16.0) g/dL Hct 37.6 (36.0-46.0) % Sodium (136-145) mmol/L Potassium (3.5-5.1) mmol/L Chloride (98-107) mmol/L Carbon Dioxide (21.0-32.0) mmol/L BUN (7.0-18.0) mg/dL Creatinine (0.6-1.0) mg/dL Est Cr Clr Drug Dosing mL/min Estimated GFR (MDRD) ml/min Glucose (74-106) mg/dL Calcium (8.5-10.1) mg/dL Phosphorus (2.6-4.7) mg/dL Magnesium (1.8-2.4) mg/dL Urine HCG, Qual NEGATIVE (NEGATIVE) Blood Type O POSITIVE Antibody Screen NEGATIVE 01/02/21 Range/Units 06:16 Hgb (12.0-16.0) g/dL Hct (36.0-46.0) % Sodium 136 (136-145) mmol/L Potassium 5.1 (3.5-5.1) mmol/L Chloride 102 (98-107) mmol/L Carbon Dioxide 25.9 (21.0-32.0) mmol/L BUN 17 (7.0-18.0) mg/dL Creatinine 0.9 (0.6-1.0) mg/dL Est Cr Clr Drug Dosing 74.68 mL/min Estimated GFR (MDRD) > 60.0 ml/min Glucose 136 H (74-106) mg/dL Calcium 9.0 (8.5-10.1) mg/dL Phosphorus 4.3 (2.6-4.7) mg/dL Magnesium 2.1 (1.8-2.4) mg/dL Urine HCG, Qual (NEGATIVE) Blood Type Antibody Screen Med Orders - Current: Current Medications Al Hydroxide/Mg Hydroxide (Mag-Al Plus) 30 ml PO Q4H PRN PRN Reason: Indigestion Aspirin (Aspirin) 325 mg PO DAILY [facility] Bisacodyl (Dulcolax) 10 mg RECTAL DAILY PRN PRN Reason: Constipation Celecoxib (Celebrex) 200 mg PO DAILY [facility] Diphenhydramine HCl (Benadryl) 25 - 50 mg PO Q6H PRN PRN Reason: Itching Docusate Sodium (Colace) 100 mg PO BID PRN PRN Reason: Constipation Famotidine (Pepcid) 40 mg IVPUSH ONARRIVE [facility] Famotidine (Pepcid) 40 mg PO ACBREAKFAST [facility] Last Admin: 01/02/21 06:38 Dose: 40 mg Documented by: Lactated Ringer's (Ringers, Lactated) 1,000 mls @ 100 mls/hr IV ASDIRECTED [facility] Last Admin: 01/01/21 11:29 Dose: 100 mls/hr Documented by: Cefazolin Sodium/Dextrose 2 gm (/ Premix) 50 mls @ 100 mls/hr IV ONCALL [facility] Ropivacaine 49.25 ml/Ketorolac Tromethamine 30 mg/Epinephrine HCl 0.5 mg/Clonidine HCl 80 mcg/ Sodium Chloride 75 mls @ 50 mls/sec INJECT ASDIRECTED [facility] Metoprolol Tartrate (Lopressor) 100 mg PO DAILY [facility] Morphine Sulfate (Morphine) 1 - 2 mg IVPUSH Q3H PRN PRN Reason: Pain Ondansetron HCl (Zofran) 4 mg IVPUSH Q6H PRN PRN Reason: Nausea/Vomiting Oxycodone/Acetaminophen (Percocet 325-5 Mg) 1 - 2 tab PO Q4H PRN PRN Reason: Pain Last Admin: 01/02/21 07:53 Dose: 2 tab Documented by: Polyethylene Glycol (Miralax) 17 gm PO DAILY [facility] Scopolamine (Transderm-Scop) 1.5 mg TRDERM ONARRIVE [facility] Sodium Chloride (Saline Flush) 10 ml FLUSH ASDIRECTED PRN PRN Reason: Keep Vein Open Sodium Chloride (Saline Flush) 2.5 ml FLUSH ASDIRECTED PRN PRN Reason: Keep Vein Open Tramadol HCl (Ultram) 50 - 100 mg PO Q6H PRN PRN Reason: Pain Discontinued Medications Albuterol (Proventil Neb Soln) 2.5 mg NEB ONETIME PRN PRN Reason: Wheezing Atropine Sulfate (Atropine 0.1 Mg/Ml) 0.5 mg IVPUSH ASDIRECTED PRN PRN Reason: Hypo-perfusion Atropine Sulfate (Atropine 0.1 Mg/Ml) 1 mg IVPUSH ASDIRECTED PRN PRN Reason: Hypo-Perfusion Bupivacaine HCl (Marcaine 0.5%) Confirm Administered Dose 30 ml .ROUTE .STK-MED ONE Stop: 01/01/21 13:00 Dextrose/Water (Dextrose 50% In Water) 50 ml IVPUSH ASDIRECTED PRN PRN Reason: Hypoglycemia Epinephrine HCl (Epinephrine 1:10,000) 1 mg IVPUSH ASDIRECTED PRN PRN Reason: ACLS Guidelines Famotidine (Pepcid) 40 mg IVPUSH ONARRIVE [facility] Famotidine (Pepcid) Confirm Administered Dose 40 mg .ROUTE .STK-MED ONE Stop: 01/01/21 10:03 Last Admin: 01/01/21 11:32 Dose: 40 mg Documented by: Fentanyl (Sublimaze) Confirm Administered Dose 100 mcg .ROUTE .STK-MED ONE Stop: 01/01/21 10:13 Fentanyl (Sublimaze) 50 mcg IVPUSH Q5M PRN PRN Reason: Pain Hydromorphone HCl (Dilaudid) 0.5 mg IVPUSH .Q5MIN PRN PRN Reason: Pain (severe 7-10) Last Admin: 01/01/21 15:48 Dose: 0.5 mg Documented by: Ropivacaine 49.25 ml/Ketorolac Tromethamine 30 mg/Epinephrine HCl 0.5 mg/Clonidine HCl 80 mcg/ Sodium Chloride 75 mls @ 50 mls/sec INJECT ASDIRECTED [facility] Cefazolin Sodium/Dextrose 2 gm (/ Premix) 50 mls @ 100 mls/hr IV ONCALL [facility] Lactated Ringer's (Ringers, Lactated) 1,000 mls @ 100 mls/hr IV ASDIRECTED [facility] Cefazolin Sodium/Dextrose 2 gm (/ Premix) 50 mls @ 100 mls/hr IV Q8H [facility] Stop: 01/02/21 06:29 Last Admin: 01/02/21 06:35 Dose: 100 mls/hr Documented by: Ketorolac Tromethamine (Toradol) Confirm Administered Dose 30 mg .ROUTE .STK-MED ONE Stop: 01/01/21 15:02 Ketorolac Tromethamine (Toradol) 30 mg IVPUSH Q6H [facility] Stop: 01/02/21 05:00 Last Admin: 01/02/21 04:23 Dose: 30 mg Documented by: Lidocaine HCl (Xylocaine-Mpf 1%) Confirm Administered Dose 5 ml .ROUTE .STK-MED ONE Stop: 01/01/21 10:13 Midazolam HCl (Versed 1 Mg/Ml) Confirm Administered Dose 2 mg .ROUTE .STK-MED ONE Stop: 01/01/21 10:13 Naloxone HCl (Narcan) 0.1 mg IVPUSH ASDIRECTED PRN PRN Reason: Respiratory Depression Ondansetron HCl (Zofran) 4 mg IVPUSH ONETIME PRN PRN Reason: Nausea/Vomiting Propofol (Diprivan 20 Ml) Confirm Administered Dose 200 mg .ROUTE .STK-MED ONE Stop: 01/01/21 10:13 Scopolamine (Transderm-Scop) 1.5 mg TRDER ONARRIVE [facility] Scopolamine (Transderm-Scop) Confirm Administered Dose 1.5 mg .ROUTE .STK-MED ONE Stop: 01/01/21 09:59 Last Admin: 01/01/21 11:30 Dose: 1.5 mg Documented by: Tranexamic Acid (Cyklokapron) 1,000 mg TOP ASDIRECTED ONE Stop: 12/25/20 06:01 Tranexamic Acid (Cyklokapron) 1,000 mg TOP ASDIRECTED ONE Stop: 01/01/21 06:01 Last Admin: 01/01/21 17:09 Dose: Not Given Documented by: Vancomycin HCl (Vancomycin) Confirm Administered Dose 0 gm .ROUTE .STK-MED ONE Stop: 01/01/21 13:58 - Exam General: Alert, Oriented, Cooperative, No Acute Distress Lungs: Clear to Auscultation, Normal Respiratory Effort Cardiovascular: Regular Rate, Regular Rhythm GI/Abdominal Exam: Normal Bowel Sounds, Soft, Non-Tender, No Abnormal Bruit Extremities: No Pedal Edema, Other (Right knee dressings in place) Sepsis Event Note - Evaluation Sepsis Screening Result: No Definite Risk - Focused Exam Vital Signs: Vital Signs Temp Pulse Resp BP Pulse Ox 01/02/21 07:36 36.2 C 62 16 113/71 93 L 01/02/21 04:14 35.9 C L 57 L 16 119/65 94 L 01/02/21 00:27 36.2 C 65 17 118/71 94 L 01/01/21 22:00 36.4 C 75 17 135/71 95 Consult PN Assessment/Plan Procedures: Procedures ASSAY OF CK (CPK) (03/23/14) ASSAY OF LIPASE (03/23/14) ASSAY OF TROPONIN QUANT (03/27/14) ASSAY THYROID STIM HORMONE (01/22/20) CHEST X-RAY 1 VIEW FRONTAL (03/23/14) COMPLETE CBC W/AUTO DIFF WBC (03/27/14) COMPREHEN METABOLIC PANEL (03/27/14) CREATINE MB FRACTION (03/27/14) ELECTROCARDIOGRAM TRACING (03/27/14) EMERGENCY DEPT VISIT (12/05/20) EMERGENCY DEPT VISIT (03/24/19) EMERGENCY DEPT VISIT (03/23/14) ROUTINE VENIPUNCTURE (01/22/20) SARS-COV-2 COVID-19 AMP PRB (12/30/20) THER/PROPH/DIAG INJ IV PUSH (03/27/14) THER/PROPH/DIAG INJ SC/IM (03/24/19) X-RAY EXAM L-S SPINE 2/3 VWS (03/24/19) X-RAY EXAM OF KNEE 3 (12/12/20) X-RAY EXAM SACRUM TAILBONE (03/24/19) Problem List Initiated/Reviewed/Updated: Yes My Orders Last 24 Hours: My Active Orders 01/01/21 16:59 Telemetry Monitoring [Cardiac Monitoring] [RC] Q8H 01/02/21 09:00 Metoprolol Tartrate [Lopressor] 100 mg PO DAILY Plan: Assessment and Plan: 1. S/P Right TKA POD#1: - Continue management per orthopedic surgery. 2. Atrial fibrillation, rate controlled: - Continue telemetry. Patient on metoprolol succinate 100 mg qd. Patient denies being on any chronic anticoagulation. 3. DVT prophylaxis: - Aspirin 325 mg qd per orthopedic surgery.
[2021-01-02] MEDS ORDERED: Polyethylene Glycol 3350 Powder 17 GM Packet PO SCH (09:00)
[2021-01-02] MEDS ORDERED: Celecoxib 100 MG Cap PO SCH (09:00)
[2021-01-02] MEDS ORDERED: Metoprolol Tartrate 50 MG Tab PO SCH (09:00)
[2021-01-02] MEDS ORDERED: Aspirin 325 MG Tab PO SCH (09:00)
[2021-01-02] MEDS ORDERED: Metoprolol Succinate 100 MG Tab.ER PO SCH (10:45)
--- NOTE | 2021-01-02 12:48 | PCM.DCSUM1 ---
Discharge Summary - Hospital Course Free Text/Narrative:: Salome underwent RIGHT TOTAL KNEE ARTHROPLASTY 01/01/[address] Don Chambers. Admitted to med/surg for postop care and PT. POD#1, Salome is doing well. Tolerating food/fluids without N/V. Tolerating oral narcotic without N/V or other adverse effects. VSS/afebrile. Hg stable at 12.8 Pain controlled with Percocet. Using polarcare ice pad. Prophylactic antibiotic : Ancef 2gm IV (2 additional doses after surgery) DVT prophylaxis: ASA 325mg daily (will start POD#1), SCDs, and early ambulation Her surgery was yesterday afternoon, so by the time she got settled into her room after recovery, she did not have PT. She will be seen by PT today. Salome will be ready for discharge home this afternoon after she has PT. DISCHARGE MEDICATIONS : 1) ASA 325mg daily (she has bottle at home) for VTE prophylaxis 2) Percocet 5/325mg 1-2 tabs po q6h prn pain 3) Celebrex 200mg daily 4) resume all other Rx home medications (metoprolol) DISCHARGE ORDERS : Follow up appt is scheduled for 3 weeks at ortho clinic for suture removal. 2 additional AquaCell bandages sent home with her to be changed weekly She has a walker at home Outpatient PT is scheduled at [facility] in the building. Salome was informed if she has questions or concerns, to call the clinic during clinic hours - Discharge Data Discharge Date: 01/02/21 Discharge Disposition: Home, Self-Care 01 Condition: Good - Referral to Home Health Primary Care Physician: Pedro Stark MD - Patient Summary/Data Operative Procedure(s) Performed: r tka Consults: Consultations 01/01/21 15:10 Consult to Physician [CONS] Routine 01/01/21 15:12 PT Evaluation and Treatment [CONS] Routine - Patient Instructions Diet: Usual Diet as Tolerated Activity: Apply Ice (use PolarCare ice pad often to decrease swelling), Elevate Extremity (when elevating, place pillow under your heel. Please do not place pillow under your knee), No Strenuous Activities Activity, Other: Use walker when ambulating Driving: Do Not Drive Showering/Bathing: May Shower Notify Provider of: Fever, Increased Pain, Swelling and Redness, Drainage Other/Special Instructions: Refer to Knee Notebook from optimization visit as a reference. Compression stockings on in the morning, remove before bedtime. - Discharge Plan Prescriptions/Med Rec: Celecoxib [CeleBREX] 200 mg PO DAILY #30 cap Acetaminophen/oxyCODONE [Percocet 325-5 MG] 1 - 2 tab PO Q6H PRN #40 tablet PRN Reason: Pain Home Medications: Home Meds Acetaminophen/oxyCODONE [Percocet 325-5 MG] 1 - 2 tab PO Q6H PRN #40 tablet 01/02/21 [Rx] Aspirin 325 mg PO DAILY tablet 01/02/21 [Rx] Celecoxib [CeleBREX] 200 mg PO DAILY #30 cap 01/02/21 [Rx] Docusate Sodium [Colace] 100 mg PO BID PRN cap 01/02/21 [Rx] Metoprolol Succinate 100 mg PO DAILY 01/02/21 [History] Patient Handouts: Acetaminophen; Oxycodone tablets, Celecoxib Oral Capsules, Total Knee Replacement, Care After, [id number] Referrals: Ana Zamarripa NP [Nurse Practitioner] - 01/23/21 1:20 pm Pedro Stark MD [Primary Care Provider] - 01/14/21 10:00 am - Discharge Summary/Plan Comment DC Time >30 min.: No - General Info Date of Service: 01/02/21 (829) Admission Dx/Problem (Free Text: Admission Diagnosis/Problem Admission Diagnosis/Problem Knee pain s/p RIGHT TKA Functional Status: Reports: Pain Controlled, Tolerating Diet (ate supper and breakfast without N/V), Ambulating (ambulated in room with staff and walker), Urinating - Review of Systems General: Denies: No Symptoms Gastrointestinal: Denies: Nausea, Vomiting Musculoskeletal: Reports: Joint Pain (right knee) Neurological: Reports: No Symptoms Psychiatric: Reports: No Symptoms - Patient Data Vitals - Most Recent: Last Vital Signs Temp 36.6 C 01/02/21 12:28 Pulse 49 L 01/02/21 12:28 Resp 16 01/02/21 12:28 BP 118/59 L 01/02/21 12:28 Pulse Ox 97 01/02/21 12:28 Weight - Most Recent: 95.708 kg I&O - Last 24 hours: Intake & Output 01/01/21 01/02/21 01/02/21 22:59 06:59 14:59 Intake Total 2500 800 Output Total 1050 Balance 2500 -250 Lab Results - Last 24 hrs: Laboratory Results - last 24 hr 01/01/21 01/02/21 01/02/21 Range/Units 11:45 06:16 06:16 Hgb 12.8 (12.0-16.0) g/dL Hct 37.6 (36.0-46.0) % Sodium 136 (136-145) mmol/L Potassium 5.1 (3.5-5.1) mmol/L Chloride 102 (98-107) mmol/L Carbon Dioxide 25.9 (21.0-32.0) mmol/L BUN 17 (7.0-18.0) mg/dL Creatinine 0.9 (0.6-1.0) mg/dL Est Cr Clr Drug Dosing 74.68 mL/min Estimated GFR (MDRD) > 60.0 ml/min Glucose 136 H (74-106) mg/dL Calcium 9.0 (8.5-10.1) mg/dL Phosphorus 4.3 (2.6-4.7) mg/dL Magnesium 2.1 (1.8-2.4) mg/dL Blood Type O POSITIVE Antibody Screen NEGATIVE Med Orders - Current: Current Medications Al Hydroxide/Mg Hydroxide (Mag-Al Plus) 30 ml PO Q4H PRN PRN Reason: Indigestion Aspirin (Aspirin) 325 mg PO DAILY [facility] Last Admin: 01/02/21 09:39 Dose: 325 mg Documented by: Bisacodyl (Dulcolax) 10 mg RECTAL DAILY PRN PRN Reason: Constipation Celecoxib (Celebrex) 200 mg PO DAILY [facility] Last Admin: 01/02/21 09:39 Dose: 200 mg Documented by: Diphenhydramine HCl (Benadryl) 25 - 50 mg PO Q6H PRN PRN Reason: Itching Docusate Sodium (Colace) 100 mg PO BID PRN PRN Reason: Constipation Famotidine (Pepcid) 40 mg IVPUSH ONARRIVE KELSEY Famotidine (Pepcid) 40 mg PO ACBREAKFAST [facility] Last Admin: 01/02/21 06:38 Dose: 40 mg Documented by: Lactated Ringer's (Ringers, Lactated) 1,000 mls @ 100 mls/hr IV ASDIRECTED [facility] Last Admin: 01/01/21 11:29 Dose: 100 mls/hr Documented by: Cefazolin Sodium/Dextrose 2 gm (/ Premix) 50 mls @ 100 mls/hr IV ONCALL [facility] Ropivacaine 49.25 ml/Ketorolac Tromethamine 30 mg/Epinephrine HCl 0.5 mg/Clonidine HCl 80 mcg/ Sodium Chloride 75 mls @ 50 mls/sec INJECT ASDIRECTED [facility] Metoprolol Succinate (Toprol Xl) 100 mg PO DAILY [facility] Last Admin: 01/02/21 10:47 Dose: 100 mg Documented by: Morphine Sulfate (Morphine) 1 - 2 mg IVPUSH Q3H PRN PRN Reason: Pain Ondansetron HCl (Zofran) 4 mg IVPUSH Q6H PRN PRN Reason: Nausea/Vomiting Oxycodone/Acetaminophen (Percocet 325-5 Mg) 1 - 2 tab PO Q4H PRN PRN Reason: Pain Last Admin: 01/02/21 12:22 Dose: 2 tab Documented by: Polyethylene Glycol (Miralax) 17 gm PO DAILY [facility] Last Admin: 01/02/21 09:39 Dose: 17 gm Documented by: Scopolamine (Transderm-Scop) 1.5 mg TRDERM ONARRIVE [facility] Sodium Chloride (Saline Flush) 10 ml FLUSH ASDIRECTED PRN PRN Reason: Keep Vein Open Sodium Chloride (Saline Flush) 2.5 ml FLUSH ASDIRECTED PRN PRN Reason: Keep Vein Open Tramadol HCl (Ultram) 50 - 100 mg PO Q6H PRN PRN Reason: Pain Discontinued Medications Albuterol (Proventil Neb Soln) 2.5 mg NEB ONETIME PRN PRN Reason: Wheezing Atropine Sulfate (Atropine 0.1 Mg/Ml) 0.5 mg IVPUSH ASDIRECTED PRN PRN Reason: Hypo-perfusion Atropine Sulfate (Atropine 0.1 Mg/Ml) 1 mg IVPUSH ASDIRECTED PRN PRN Reason: Hypo-Perfusion Bupivacaine HCl (Marcaine 0.5%) Confirm Administered Dose 30 ml .ROUTE .STK-MED ONE Stop: 01/01/21 13:00 Dextrose/Water (Dextrose 50% In Water) 50 ml IVPUSH ASDIRECTED PRN PRN Reason: Hypoglycemia Epinephrine HCl (Epinephrine 1:10,000) 1 mg IVPUSH ASDIRECTED PRN PRN Reason: ACLS Guidelines Famotidine (Pepcid) 40 mg IVPUSH ONARRIVE [facility] Famotidine (Pepcid) Confirm Administered Dose 40 mg .ROUTE .STK-MED ONE Stop: 01/01/21 10:03 Last Admin: 01/01/21 11:32 Dose: 40 mg Documented by: Fentanyl (Sublimaze) Confirm Administered Dose 100 mcg .ROUTE .STK-MED ONE Stop: 01/01/21 10:13 Fentanyl (Sublimaze) 50 mcg IVPUSH Q5M PRN PRN Reason: Pain Hydromorphone HCl (Dilaudid) 0.5 mg IVPUSH .Q5MIN PRN PRN Reason: Pain (severe 7-10) Last Admin: 01/01/21 15:48 Dose: 0.5 mg Documented by: Ropivacaine 49.25 ml/Ketorolac Tromethamine 30 mg/Epinephrine HCl 0.5 mg/Clonidine HCl 80 mcg/ Sodium Chloride 75 mls @ 50 mls/sec INJECT ASDIRECTED [facility] Cefazolin Sodium/Dextrose 2 gm (/ Premix) 50 mls @ 100 mls/hr IV ONCALL [facility] Lactated Ringer's (Ringers, Lactated) 1,000 mls @ 100 mls/hr IV ASDIRECTED [facility] Cefazolin Sodium/Dextrose 2 gm (/ Premix) 50 mls @ 100 mls/hr IV Q8H [facility] Stop: 01/02/21 06:29 Last Admin: 01/02/21 06:35 Dose: 100 mls/hr Documented by: Ketorolac Tromethamine (Toradol) Confirm Administered Dose 30 mg .ROUTE .STK-MED ONE Stop: 01/01/21 15:02 Ketorolac Tromethamine (Toradol) 30 mg IVPUSH Q6H [facility] Stop: 01/02/21 05:00 Last Admin: 01/02/21 04:23 Dose: 30 mg Documented by: Lidocaine HCl (Xylocaine-Mpf 1%) Confirm Administered Dose 5 ml .ROUTE .STK-MED ONE Stop: 01/01/21 10:13 Metoprolol Tartrate (Lopressor) 100 mg PO DAILY [facility] Last Admin: 01/02/21 10:44 Dose: Not Given Documented by: Midazolam HCl (Versed 1 Mg/Ml) Confirm Administered Dose 2 mg .ROUTE .STK-MED ONE Stop: 01/01/21 10:13 Naloxone HCl (Narcan) 0.1 mg IVPUSH ASDIRECTED PRN PRN Reason: Respiratory Depression Ondansetron HCl (Zofran) 4 mg IVPUSH ONETIME PRN PRN Reason: Nausea/Vomiting Propofol (Diprivan 20 Ml) Confirm Administered Dose 200 mg .ROUTE .STK-MED ONE Stop: 01/01/21 10:13 Scopolamine (Transderm-Scop) 1.5 mg TRDERM ONARRIVE KELSEY Scopolamine (Transderm-Scop) Confirm Administered Dose 1.5 mg .ROUTE .STSocialDeck-MED ONE Stop: 01/01/21 09:59 Last Admin: 01/01/21 11:30 Dose: 1.5 mg Documented by: Tranexamic Acid (Cyklokapron) 1,000 mg TOP ASDIRECTED ONE Stop: 12/25/20 06:01 Tranexamic Acid (Cyklokapron) 1,000 mg TOP ASDIRECTED ONE Stop: 01/01/21 06:01 Last Admin: 01/01/21 17:09 Dose: Not Given Documented by: Vancomycin HCl (Vancomycin) Confirm Administered Dose 0 gm .ROUTE .STSocialDeck-MED ONE Stop: 01/01/21 13:58 - Exam Quality Assessment: Reports: DVT Prophylaxis (ASA 325mg daily, SCDs when in bed, and ambulation) General: Reports: Alert, Oriented, Cooperative, No Acute Distress Lungs: Reports: Normal Respiratory Effort Extremities: No Pedal Edema, Normal Capillary Refill, Other Skin: Reports: Warm, Dry Wound/Incisions: Reports: Dressing Dry and Intact, No Drainage. Denies: Erythema Neurological: Reports: Normal Speech, Normal Tone Psy/Mental Status: Reports: Alert, Normal Affect, Normal Mood Physical Findings Comments:: IMELDA bandage right knee dry and intact. IMELDA bandage and surgical dressing removed with minimal drainage. Incision well approximated with guy. No active drainage. No surrounding erythema. Minimal soft tissue swelling. No pedal edema. No calf swelling or erythema. AquaCell bandage applied. Full ROM with plantarflexion and dorsiflexion to right ankle. Sensation grossly intact to LE. numbness c/o lateral side of incision.
== END 2021-01-02 18:40 | disposition home or self-care (01) | DRG 470 ==
LOC: MW.MS 01-01 11:05
PROVIDERS: ADMIT Orthopaedic Surgery; ATTEND Orthopaedic Surgery
PROC: 0SRC0J9 Replacement of Right Knee Joint with Synthetic Substitute, Cemented, Open Approach (ICD-10-PCS; principal; 2021-01-01)
DX: M17.11 Unilateral primary osteoarthritis, right knee (principal); I10 Essential (primary) hypertension; I48.91 Unspecified atrial fibrillation; E66.9 Obesity, unspecified; Z79.82 Long term (current) use of aspirin; Z87.891 Personal history of nicotine dependence; Z68.31 Body mass index [BMI] 31.0-31.9, adult
CPT/HCPCS: 36415; 73560-26-RT; 73560-RT; 80048; 81025; 83735; 84100; 85014; 85018; 86850; 86900; 86901; 97110-GP; 97161-GP; 97530-GP; A9270-GY; C1776; J0171; J0690; J0735; J1170; J1885; J2250; J2704; J2795; J3010; J3370; J3490; J7120

== ENCOUNTER 2021-01-02 22:12 | Emergency (ER) | payer MEDICAID ==
--- NOTE | 2021-01-02 23:00 | CR ---
INDICATION: Fall with forced flexion 1 day status post total knee TECHNIQUE: Knee radiograph 3 views right COMPARISON: 01/01/2021 FINDINGS: Bone: No acute fractures or aggressive bone lesions are identified. Joint: The patient is status post a total knee arthroplasty with patellar resurfacing. No radiographic evidence of asymmetric polyethylene wear, prosthetic loosening or infection is seen. No significant knee effusion is seen. Soft tissue: Anterior skin guy, subcutaneous gas are present from recent surgery. No radiopaque foreign bodies are seen. IMPRESSION: 1. There is an unremarkable postoperative appearance of the knee arthroplasty. Dictated by: Greg Hargrove MD @ 01/02/2021 22:58:24 (Electronically Signed)
--- NOTE | 2021-01-02 23:17 | EDM.PDOC ---
ED HPI GENERAL MEDICAL PROBLEM - General Chief Complaint: Lower Extremity Injury/Pain Stated Complaint: RECENT KNEE SURGERY, FALL Time Seen by Provider: 01/02/21 22:20 - History of Present Illness INITIAL COMMENTS - FREE TEXT/NARRATIVE: 55-year-old female 1 day status post right total knee replacement with Dr. Chambers presents after a fall. The patient was going up a ramp into her home with her walker when the walker moved and she fell forcibly flexing her right knee she then rolled off of it. She had severe pain and also experienced a gush of blood. She went into the house she took 2 Percocets and now presents. Her pain is essentially resolved at rest but she is now unable to bear any weight on that right knee. It is also much more swollen than it was prior to the fall. No other injuries from the fall. Right Knee Pain Score (Numeric/FACES): 8 - Related Data Allergies Allergy/AdvReac Type Severity Reaction Status Date / Time No Known Allergies Allergy Verified 01/02/21 22:47 Home Meds: Home Meds Acetaminophen/oxyCODONE [Percocet 325-5 MG] 1 - 2 tab PO Q6H PRN #40 tablet 01/02/21 [Rx] Aspirin 325 mg PO DAILY tablet 01/02/21 [Rx] Celecoxib [CeleBREX] 200 mg PO DAILY #30 cap 01/02/21 [Rx] Docusate Sodium [Colace] 100 mg PO BID PRN cap 01/02/21 [Rx] Metoprolol Succinate 100 mg PO DAILY 01/02/21 [History] Past Medical History - Past Health History Medical/Surgical History: Denies Medical/Surgical History HEENT History: Reports: Other (See Below) Other HEENT History: wears glasses/contacts, has top & bottom dentures Cardiovascular History: Reports: Afib, Hypertension Other Cardiovascular History: 1 episode of A-fib approx 2 years ago Respiratory History: Reports: None Gastrointestinal History: Reports: None Genitourinary History: Reports: None [employer] W[employer] History: Reports: None Musculoskeletal History: Reports: Arthritis Neurological History: Reports: None Psychiatric History: Reports: None Endocrine/Metabolic History: Reports: Obesity/BMI 30+ Hematologic History: Reports: None Immunologic History: Reports: None Oncologic (Cancer) History: Reports: None Dermatologic History: Reports: None - Infectious Disease History Infectious Disease History: Reports: Measles - Past Surgical History Head Surgeries/Procedures: Reports: None HEENT Surgical History: Reports: Tonsillectomy Cardiovascular Surgical History: Reports: None Respiratory Surgical History: Reports: None GI Surgical History: Reports: None Female Surgical History: Reports: Other (See Below) Other Female Surgeries/Procedures: hx of diagnostic laparoscopy Endocrine Surgical History: Reports: None Neurological Surgical History: Reports: None Musculoskeletal Surgical History: Reports: Arthroscopic Knee, Other (See Below) Other Musculoskeletal Surgeries/Procedures:: R total knee Oncologic Surgical History: Reports: None Dermatological Surgical History: Reports: None Social & Family History - Family History Family Medical History: No Pertinent Family History - Tobacco Use Tobacco Use Status *Q: Former Tobacco User Used Tobacco, but Quit: Yes Month/Year Tobacco Last Used: 10/2020 - Caffeine Use Caffeine Use: Reports: Coffee - Recreational Drug Use Recreational Drug Use: No Review of Systems - Review of Systems Review Of Systems: See Below Respiratory: Reports: No Symptoms Cardiovascular: Reports: No Symptoms GI/Abdominal: Reports: No Symptoms Musculoskeletal: Reports: Other (Per HPI) ED EXAM, GENERAL - Physical Exam Exam: See Below Free Text/Narrative:: General Appearance: No acute distress, appears comfortable Skin: No rash HEENT: Normocephalic/atraumatic, sclera anicteric, mucous membranes moist Neck: Normal range of motion Chest and Lungs: Bilateral breath sounds, clear to auscultation Cardiovascular: Regular rate and rhythm, no murmur Musculoskeletal: 2+ right DP pulse, there is blood soaking the bandage over the right knee incision. Upon removal there is a small amount of liquid very dark red blood consistent with old blood. There is some tenderness but there is no erythema all guy are intact and wound edges remain approximated there is significant ecchymosis and swelling of the joint Neurologic: Awake, alert, no obvious deficits, moving all extremities Psychiatric: Appropriate, cooperative Course - Vital Signs Last Recorded V/S: Last Vital Signs Temp 98.3 F 01/02/21 22:30 Pulse 50 L 01/02/21 22:30 Resp 18 01/02/21 22:30 BP 116/65 01/02/21 22:30 Pulse Ox 98 01/02/21 22:30 Departure - Departure Time of Disposition: 23:54 Disposition: Home, Self-Care 01 Condition: Good Clinical Impression: Knee pain - Discharge Information *PRESCRIPTION DRUG MONITORING PROGRAM REVIEWED*: Not Applicable *COPY OF PRESCRIPTION DRUG MONITORING REPORT IN PATIENT NAYELY: Not Applicable Referrals: Pedro Stark MD [Primary Care Provider] - Forms: ED Department Discharge Additional Instructions: Please be sure to keep your physical therapy appointments as scheduled. Please continue the other postoperative care that you instructed to do. Please keep your follow-up appointment with Dr. Chambers. You may have some very minimal seeping that you noticed on the dressing over the next day or so. However if you have any more severe bleeding or any other concerns please call Dr. Chambers's office or return to the ER. The following information is given to patients seen in the emergency department who are being discharged to home. This information is to outline your options for follow-up care. We provide all patients seen in our emergency department with a follow-up referral. The need for follow-up, as well as the timing and circumstances, are variable depending upon the specifics of your emergency department visit. If you don't have a primary care physician on staff, we will provide you with a referral. We always advise you to contact your personal physician following an emergency department visit to inform them of the circumstance of the visit and for follow-up with them and/or the need for any referrals to a consulting specialist. The emergency department will also refer you to a specialist when appropriate. This referral assures that you have the opportunity for follow-up care with a specialist. All of these measure are taken in an effort to provide you with optimal care, which includes your follow-up. Under all circumstances we always encourage you to contact your private physician who remains a resource for coordinating your care. When calling for follow-up care, please make the office aware that this follow-up is from your recent emergency room visit. If for any reason you are refused follow-up, please contact the [facility] Emergency Department at and asked to speak to the emergency department charge nurse. Sepsis Event Note (ED) - Evaluation Sepsis Screening Result: No Definite Risk - Focused Exam Vital Signs: Vital Signs Temp Pulse Resp BP Pulse Ox 01/02/21 22:30 98.3 F 50 L 18 116/65 98 - Assessment/Plan Assessment:: 55-year-old female presenting with significant right knee pain and swelling after a fall postop day 1 from right total knee replacement. X-ray shows intact hardware and a normal postop appearance per radiology on my initial evaluation the patient has no ongoing active bleeding but significant swelling. I would favor the forcible evacuation of old hematoma. Will discuss with orthopedic surgery regarding any additional management and whether or not the patient should proceed with physical therapy over the weekend. 2355: Patient's x-ray is good exam is without any active bleeding. Patient was discussed in full with Dr. Chambers. He agrees it was likely evacuation of old hematoma. No additional evaluation or treatment is needed tonight the patient will likely be significantly improved by the morning. Dr. Chambers states she should keep her physical therapy appointments. This was discussed with the patient she expressed understanding patient discharged with ongoing care as previously arranged.
== END 2021-01-03 00:07 | disposition home or self-care (01) ==
LOC: MW.ED 22:12
DX: M25.561 Pain in right knee (principal); I48.91 Unspecified atrial fibrillation; I10 Essential (primary) hypertension; M19.90 Unspecified osteoarthritis, unspecified site; E66.9 Obesity, unspecified; Z68.31 Body mass index [BMI] 31.0-31.9, adult; Z79.82 Long term (current) use of aspirin; Z79.899 Other long term (current) drug therapy; Z87.891 Personal history of nicotine dependence
CPT/HCPCS: 73562-26-RT; 73562-RT; 99283

== ENCOUNTER 2021-09-14 13:59 | Emergency (ER) | payer MEDICAID ==
[2021-09-14] MEDS ORDERED: Ketorolac 60 MG/2 ML SDV IM ONE (15:23)
--- NOTE | 2021-09-14 16:12 | CR ---
INDICATION: Patient fell; right knee pain. COMPARISON: Radiographic examination of the right knee May 27, 2021. TECHNIQUE: Three-view study right knee. FINDINGS: Total knee arthroplasty on the right with anatomic alignment. No evidence of fracture or dislocation. Suprapatellar synovial effusion as well as soft tissue swelling along the anterior aspect of the knee. IMPRESSION: 1. Total knee arthroplasty on the right. 2. No fracture or dislocation. 3. Synovial effusion. Dictated by Sarah Bateman MD @ 09/14/2021 4:11:38 PM (Electronically Signed)
[2021-09-14] MEDS ORDERED: traMADol 50 MG Tab PO ONE (16:22)
--- NOTE | 2021-09-14 16:27 | EDM.PDOC ---
ED HPI GENERAL MEDICAL PROBLEM - General Chief Complaint: Lower Extremity Injury/Pain Stated Complaint: RIGHT KNEE PAIN Time Seen by Provider: 09/14/21 15:10 Source of Information: Reports: Patient History Limitations: Reports: No Limitations - History of Present Illness INITIAL COMMENTS - FREE TEXT/NARRATIVE: HISTORY AND PHYSICAL: History of present illness: The patient is a 56-year-old female who presents to the emergency department with complaints of right knee pain after slipping while attempting to get up in her truck and striking her right knee earlier today. The patient has a history of a total right knee placement last December. The patient states that she is constantly in pain and upon slipping the pain is much worse. She has slight swelling and is worried that she might have dislodged. 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 The patient has no other complaints today. Patient denies any fever, chills, hea dache, change in vision, syncope or near syncope. Denies any chest pain, back pain, shortness of breath or cough. Denies any abdominal pain, nausea, vomiting, diarrhea, constipation or dysuria. Has not noted any blood in urine or stool. Patient has been eating and drinking appropriately. Review of systems: As per history of present illness and below otherwise all systems reviewed and negative. Past medical history: As per history of present illness and as reviewed below otherwise noncontributory. Surgical history: As per history of present illness and as reviewed below otherwise noncontr ibutory. Social history: See social history for further information Family history: As per history of present illness and as reviewed below otherwise noncontributory. Physical exam: General: Well developed and well nourished. Alert and orientated x 3. Nontoxic in appearance and in no acute distress. Vital signs are stable and have been reviewed by me. Nursing notes were reviewed. HEENT: Atraumatic, normocephalic, pupils equal and reactive bilaterally, negative for conjunctival pallor or scleral icterus, mucous membranes moist, TMs normal bilaterally, throat clear, neck supple, nontender, trachea midline. No drooling or trismus noted. No meningeal signs. No hot potato voice noted. Lungs: Clear to auscultation bilaterally. No wheezes, rales, or rhonchi. Chest nontender. Normal work of breathing, no accessory muscles used. Heart: S1S2, regular rate and rhythm without overt murmur, gallops, or rubs. No JVD. No peripheral edema Abdomen: Soft, nondistended, nontender. Normoactive bowel sounds. Negative for masses or costovertebral tenderness. Skin: Intact, warm, dry. No lesions or rashes noted. Hematologic: No petechiae or purpra. Mucosa appropriate color and normal nail bed color and refill. Extremities: Right knee with lateral swelling. Right knee generalized tenderness. No instability noted. Moves all other extremities per self without difficulty or deficits, negative for cords or calf pain. Neurovascular unremarkable. Neuro: Awake, alert, oriented. Cranial nerves II through XII unremarkable. Cerebellum unremarkable. Motor and sensory unremarkable throughout. Exam nonfocal. Psychiatric: Mood and affect are appropriate. Normal thought process. Answering questions appropriately. Notes: *This patient was seen and evaluated during the 2019 SARS-CoV-2 novel [facility] pandemic period. Community viral transmission is ongoing at time of this encounter and the emergency department is operating under pandemic response procedures. As stated above the patient is a 56-year-old female who presents to emergency department with complaints of right knee pain after slipping on her truck and striking her knee. The patient has a history of a total right knee replacement last December. The patient's knee exam is normal for stability. There is some slight swelling on the lateral aspect. I have ordered a right knee x-ray for the patient. I will treat the patient's pain with tramadol and a injection of Toradol. Right knee x-ray impression 1. Total knee arthroplasty on the right. 2 fracture or dislocation. 3 synovial effusion. I discussed with the patient the findings of the knee x-ray. The patient currently has her own knee brace and will continue to wear that. I have prescribed tramadol 3 days worth for the patient. She will be calling her orthopedic provider on Wednesday for follow-up. Patient is agreeable with this discharge plan. I have talked with the patient about today's findings, in addition to providing specific details for plan of care. Reassessment at the time of disposition demonstrates that the patient is in no acute distress. The patient is stable for discharge, counseling was provided and we discussed in great detail signs and symptoms that would prompt them to return to the Emergency Department. Medication, follow up and supportive care measures were reviewed and discussed. Voices understanding and is agreeable to plan of care. Denies any further questions or concerns at this time. Diagnostics: Right knee x-ray Therapeutics: Toradol, tramadol Prescription: Tramadol 50 mg 1 every 6 hours as needed Impression: Effusion right knee Plan: 1. You were evaluated today on an emergent basis. Your complaints of right knee pain was evaluated with a right knee x-ray which showed 1. Total knee arthroplasty on the right. 2. No fracture or dislocation. 3. Synovial effusion. As we talked about I gave you Toradol which is an high part inside for your pain control which is treatment for the synovial effusion. Continue to take your home NSAID. I have prescribed you tramadol 50 mg 1 every 6 hours for pain as needed for about 3 days worth. You need to follow-up with your primary care and your orthopedic as you stated you would on Wednesday. I would continue to wear your knee brace. 2. You can alternate Tylenol and ibuprofen as needed for pain and fever management. 3. We encourage you to follow up with your primary care provider and/or recommended specialist in the next few days for re-evaluation and further care/management. 4. If your symptoms should worsen, new symptoms develop or any of the signs and symptoms we discussed should arise please return to the emergency room or call 911 (if needed). Definitive disposition and diagnosis as appropriate pending reevaluation and review of above. Right Knee Pain Score (Numeric/FACES): 7 - Related Data Allergies Allergy/AdvReac Type Severity Reaction Status Date / Time No Known Allergies Allergy Verified 09/14/21 14:55 Home Meds: Home Meds Aspirin 325 mg PO DAILY tablet 01/02/21 [Rx] Metoprolol Succinate 100 mg PO DAILY 01/02/21 [History] Past Medical History - Past Health History Medical/Surgical History: Denies Medical/Surgical History HEENT History: Reports: Other (See Below) Other HEENT History: wears glasses/contacts, has top & bottom dentures Cardiovascular History: Reports: Afib, Hypertension Other Cardiovascular History: 1 episode of A-fib approx 2 years ago Respiratory History: Reports: None Gastrointestinal History: Reports: None Genitourinary History: Reports: None CAR ESCORT History: Reports: None Musculoskeletal History: Reports: Arthritis Neurological History: Reports: None Psychiatric History: Reports: None Endocrine/Metabolic History: Reports: Obesity/BMI 30+ Hematologic History: Reports: None Immunologic History: Reports: None Oncologic (Cancer) History: Reports: None Dermatologic History: Reports: None - Infectious Disease History Infectious Disease History: Reports: Measles - Past Surgical History Head Surgeries/Procedures: Reports: None HEENT Surgical History: Reports: Tonsillectomy Cardiovascular Surgical History: Reports: None Respiratory Surgical History: Reports: None GI Surgical History: Reports: None Female Surgical History: Reports: Other (See Below) Other Female Surgeries/Procedures: hx of diagnostic laparoscopy Endocrine Surgical History: Reports: None Neurological Surgical History: Reports: None Musculoskeletal Surgical History: Reports: Arthroscopic Knee, Other (See Below) Other Musculoskeletal Surgeries/Procedures:: R total knee Oncologic Surgical History: Reports: None Dermatological Surgical History: Reports: None Social & Family History - Family History Family Medical History: No Pertinent Family History - Tobacco Use Second Hand Smoke Exposure: No - Caffeine Use Caffeine Use: Reports: None - Recreational Drug Use Recreational Drug Use: No Review of Systems - Review of Systems Review Of Systems: Comprehensive ROS is negative, except as noted in HPI. ED EXAM, GENERAL - Physical Exam Exam: See Below (See dictation) Course - Vital Signs Last Recorded V/S: Last Vital Signs Temp 98 F 09/14/21 14:50 Pulse 68 09/14/21 16:41 Resp 16 09/14/21 16:41 BP 166/79 H 09/14/21 16:41 Pulse Ox 98 09/14/21 16:41 - Orders/Labs/Meds Meds: Medications Discontinued Medications Generic Name Dose Route Start Last Admin Trade Name Freq PRN Reason Stop Dose Admin Ketorolac Tromethamine 60 mg 09/14/21 15:23 09/14/21 15:37 Ketorolac 60 Mg/2 Ml Sdv IM 09/14/21 15:24 60 mg ONETIME ONE Administration Tramadol HCl 100 mg 09/14/21 16:22 09/14/21 16:39 Tramadol 50 Mg Tab PO 09/14/21 16:23 100 mg ONETIME ONE Administration Departure - Departure Time of Disposition: 16:26 Disposition: Home, Self-Care 01 Clinical Impression: Effusion of knee joint right - Discharge Information *PRESCRIPTION DRUG MONITORING PROGRAM REVIEWED*: Not Applicable *COPY OF PRESCRIPTION DRUG MONITORING REPORT IN PATIENT NAYELY: Not Applicable Instructions: Knee Effusion Referrals: Pedro Stark MD [Primary Care Provider] - Forms: ED Department Discharge Additional Instructions: The following information is given to patients seen in the emergency department who are being discharged to home. This information is to outline your options for follow-up care. We provide all patients seen in our emergency department with a follow-up referral. The need for follow-up, as well as the timing and circumstances, are variable depending upon the specifics of your emergency department visit. If you don't have a primary care physician on staff, we will provide you with a referral. We always advise you to contact your personal physician following an emergency department visit to inform them of the circumstance of the visit and for follow-up with them and/or the need for any referrals to a consulting specialist. The emergency department will also refer you to a specialist when appropriate. This referral assures that you have the opportunity for follow-up care with a specialist. All of these measure are taken in an effort to provide you with optimal care, which includes your follow-up. Under all circumstances we always encourage you to contact your private physician who remains a resource for coordinating your care. When calling for follow-up care, please make the office aware that this follow-up is from your recent emergency room visit. If for any reason you are refused follow-up, please contact the [facility] Emergency Department at and asked to speak to the emergency department charge nurse. [facility] - Primary Care [address] [place] [address] [place] [address] Plan: 1. You were evaluated today on an emergent basis. Your complaints of right knee pain was evaluated with a right knee x-ray which showed 1. Total knee arthroplasty on the right. 2. No fracture or dislocation. 3. Synovial effusion. As we talked about I gave you Toradol which is an high part inside for your pain control which is treatment for the synovial effusion. Continue to take your home NSAID. I have prescribed you tramadol 50 mg 1 every 6 hours for pain as needed for about 3 days worth. You need to follow-up with your primary care and your orthopedic as you stated you would on Wednesday. I would continue to wear your knee brace. 2. You can alternate Tylenol and ibuprofen as needed for pain and fever management. 3. We encourage you to follow up with your primary care provider and/or recommended specialist in the next few days for re-evaluation and further care/management. 4. If your symptoms should worsen, new symptoms develop or any of the signs and symptoms we discussed should arise please return to the emergency room or call 911 (if needed). Sepsis Event Note (ED) - Evaluation Sepsis Screening Result: No Definite Risk
== END 2021-09-14 16:48 | disposition home or self-care (01) ==
LOC: MW.ED 13:59
DX: M25.461 Effusion, right knee (principal); I48.91 Unspecified atrial fibrillation; I10 Essential (primary) hypertension; M19.90 Unspecified osteoarthritis, unspecified site; E66.9 Obesity, unspecified; Z68.44 Body mass index [BMI] 60.0-69.9, adult; Z96.651 Presence of right artificial knee joint; Z79.82 Long term (current) use of aspirin; Z79.899 Other long term (current) drug therapy
CPT/HCPCS: 73562; 96372; 99283; A9270; J1885

== ENCOUNTER 2021-11-14 23:52 | Emergency (ER) | payer MEDICAID, OTHER ==
[2021-11-15] MEDS ORDERED: Morphine 4 MG/ML VIAL IVPUSH ONE (00:03)
[2021-11-15 00:34] LABS: CARBON DIOXIDE,CO2 23.7 mmol/L (21.0-32.0); POTASSIUM,K 3.7 mmol/L (3.5-5.1)
[2021-11-15] MEDS ORDERED: HYDROmorphone 1 MG/ML Syringe IVPUSH ONE ×4 (00:45→09:11)
[2021-11-15] MEDS ORDERED: Piperacillin/Tazobactam 4.5 GM in Sodium Chloride 0.9% 100 ML IV ONE (00:53)
[2021-11-15] MEDS ORDERED: Lactated Ringers 1,000 ML IV STA ×2 (00:54→03:09)
--- NOTE | 2021-11-15 01:34 | CR ---
Indication: Pain following knee surgery last , unable to bend knee Technique: Three views of the right knee Comparison: Right knee radiographs 09/14/2021 Findings/Impression: Interval removal of arthroplasty hardware. Numerous small rounded hyperdense foci along the distal femur presumably represent implanted beads. Correlate with operative note. Large knee joint effusion present. Marked prepatellar soft tissue edema with mild subcutaneous emphysema. Dictated by Mike Juan MD @ 11/15/2021 1:32:22 AM (Electronically Signed)
[2021-11-15] MEDS ORDERED: VANCOmycin 2 GM/400 ML 2 GM in Premix Bag 1 BAG IV ONE (02:30)
[2021-11-15 03:00] LABS: CORONAVIRUS COVID-19 NAA NEGATIVE (NEGATIVE); INFLUENZA A NAA NEGATIVE (NEGATIVE); INFLUENZA B NAA NEGATIVE (NEGATIVE)
--- NOTE | 2021-11-15 03:13 | EDM.PDOC ---
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 The patient states that in January [id number] by Dr. Dorado in [place] had a right knee replacement. She states that approximately 2 weeks ago to 3 weeks ago she was diagnosed with a septic prosthetic knee. She states that she was transferred to [place] for hardware removal by Dr. Chappell. This was completed on November 05, 2021. She states that she was discharged and was scheduled for outpatient IV antibiotics at the infusion center. She states that she received 1 IV infusion however has missed all the other doses. She states that she called the nursing center and they prescribed her p.o. antibiotics however told her to stop taking them because this was a severe infection. She comes tonight with severe worsening right lower extremity/knee pain which she describes as sharp and rated 10 out of 10. She states that it radiates all the way down her leg starting at her knee. She denies any fevers but states that her knee is extremely swollen and painful. She denies any purulent drainage. She states that she has not had any relief with pain medications at home and exacerbation is by any movement at all whatsoever. She denies any chest pain, shortness of breath, abdominal pain. She denies any other symptoms. Onset was at 3 PM earlier in the day. REVIEW OF SYSTEMS: Constitutional: Denies fever, chills. Eyes: Denies eye pain Ears, Nose, Mouth, & Throat: Denies earache Cardiovascular: Denies chest pain Respiratory: Denies shortness of breath Gastrointestinal: Denies Nausea, vomiting, diarrhea, hematochezia. Genitourinary: Denies hematuria Skin:Denies a rash MSK: Positive for swollen, painful right knee Neurological: Denies blurred vision Psychiatric: Denies depression PAST MEDICAL HISTORY: As per history of present illness and as reviewed below otherwise noncontributory. SURGICAL HISTORY: As per history of present illness and as reviewed below otherwise noncontributory. SOCIAL HISTORY: As per history of present illness and as reviewed below otherwise noncontributory. FAMILY HISTORY: As per history of present illness and as reviewed below otherwise noncontributory. EXAMINATION OF ORGAN SYSTEMS/BODY AREAS: Constitutional: Blood pressure is 167/144, heart rate 135, respiratory rate 18 with an oxygen saturation of 98% on room air. Temperature 36.7 General: Middle-aged woman who appears to be in a severe amount of pain who is screaming Psychiatric: Appropriate mood and affect. Eyes: No scleral icterus or conjunctival erythema ENMT: Moist mucous membranes. No pharyngeal erythema Cardiovascular: Tachycardic but regular no gallops, murmurs, or rubs. Bilateral upper extremity pulses symmetric and intact. Bilateral lower extremity DP and PT pulses are symmetric and intact. Capillary refill is less than 2 seconds distally respiratory: Lungs clear to auscultation bilaterally. No wheezes, rales, or rhonchi. Gastrointestinal: Soft, non-tender, non-distended. Normoactive bowel sounds Genitourinary: No suprapubic tenderness Musculoskeletal: The patient has a knee brace on her right knee with clean dry and intact dressing of the right knee anteriorly. The right knee is severely swollen, severely tender to palpation and warm as compared to the left. Distal sensation is intact. No evidence of purulent drainage. Skin: No lesions or abrasions. No crepitus. No obvious streaking erythema Neurological: Alert, GCS 15 MEDICAL DECISION MAKING AND COURSE IN THE ED WITH INTERPRETATION/REVIEW OF DIAGNOSTIC STUDIES: This is a 56-year-old man with a recent septic prosthetic joint status post hardware removal and incomplete outpatient IV antibiotics who comes to the emergency department with acutely worsening severe right knee pain with a warm, swollen, tender and red knee. At this time I do suspect continued septic joint given that the patient has missed her antibiotics. Given this we will obtain a septic work-up given the patient is tachycardic, obtain blood cultures and provide the patient with 1 L of lactated Ringer's bolus. We will provide the patient with 4 mg of IV morphine for pain relief. We will reevaluate after this. I did discuss with patient that at this time she will likely require transfer for evaluation by her surgeon or other orthopedic surgeon/joint specialist for possible aspiration and washout. She was amenable to this plan. Cardiac monitoring did reveal sinus rhythm/tachycardia. Pulse oximetry with good waveform was 100% on room air. The patient is severely hypertensive at this time however I do believe this secondary to the degree of pain that the patient is experiencing. I did review the patient's prior microbiology and on November 05, 2021 the patient had 7 right knee joint aspirate cultures all revealing coagulase negative Staphylococcus. DDx: Cellulitis, septic right knee Laboratory: CBC reveals a leukocytosis of 17.96, normocytic anemia with a hemoglobin of 10.3 hematocrit of 31.8. Thrombocytosis with a platelet count of 438. There are segmented neutrophils. ESR is elevated at 65. INR is normal at 1.13. BMP reveals hyponatremia at 131, hypochloremia at 95, elevated creatinine at 1.1, hyperglycemia at 186. Lactic acid is normal at 1.1. Hyperbilirubinemia at 1.6 and CRP elevation at 2.70. Covid and influenza are negative. After initial morphine dose the patient continued to have 10 out of 10 pain. Therefore we will provide the patient with 1 mg of IV Dilaudid and reevaluate. The radiological images were viewed by myself along with reading the report from the radiologist. Right knee x-ray reveals interval removal of arthroplasty hardware. Numerous small rounded hyperdense foci along the distal femur presumably representing implanted beads. There is a large knee joint effusion present. Marked prepatellar soft tissue edema with mild subcutaneous emphysema After imaging I did contact [facility] in [place]. At this time Dr. Chappell is not on- call and they do not have any orthopedic or joint availability. Therefore, I contacted [facility] in [place] and [facility] in [place] both of which do not have any capability at this time. I contacted [facility] in [place] and Dr. Wilson accepted the patient for emergency department to the emergency department transfer. I did discuss this with the patient and patient's at bedside. They were amenable to this plan. We will start the patient on maintenance fluids. At this time the patient does not meet flight criteria and EMS crew's are unavailable until 8 AM. We will hold the patient in the emergency department u ntil safe transfer can be initiated. DISPOSITION: Patient was signed out to [facility] day team physician pending transfer to [facility] in [place] CONDITION: Serious PROCEDURES: Cardiac monitoring interpretation, pulse oximetry interpretation FINAL IMPRESSION(S)/DIAGNOSES: 1. Acute continued right septic knee joint Critical Care Procedure Note Authorized and performed by: Saw Smith M.D. Critical Care Time: 55 minutes Due to a high probability of clinically significant, life threatening deterioration, the patient required my highest level of preparedness to intervene emergently and I personally spent this critical care time directly and personally managing the patient. This critical care time included obtaining a history, examining the patient, pulse oximetry; ordering and review of studies; arranging urgent treatment with development of a management plan; evaluation of a patients reponse to treatment; frequent assessment; and discussions with other providers. This critical care time was performed to assess and manage the high probability of imminent, life threatening deterioration that could result in multiorgan failure. It was exclusive of separate billable procedures and treating other patients. Please see MDM section and rest of the note for further information on patient assessment and treatment. Please see MDM section and rest of the note for further information on patient assessment and treatment. Saw Smith M.D. Right Knee Pain Score (Numeric/FACES): 10 - Related Data Allergies Allergy/AdvReac Type Severity Reaction Status Date / Time No Known Allergies Allergy Verified 11/05/21 11:22 [facility] Home Meds: Home Meds Metoprolol Succinate 100 mg PO DAILY 01/02/21 [History] Acetaminophen [Tylenol] 650 mg PO DAILY 11/04/21 [History] Aspirin [Aspirin EC] 325 mg PO BID #84 tab 11/04/21 [Rx] Cyclobenzaprine [Flexeril] 10 mg PO BID PRN #20 tab 11/04/21 [Rx] Multivitamin 1 tab PO DAILY 11/04/21 [History] oxyCODONE 5 - 10 mg PO Q4H PRN #40 tab 11/04/21 [Rx] Past Medical History - Past Health History Medical/Surgical History: Denies Medical/Surgical History HEENT History: Reports: Impaired Vision, Other (See Below) Other HEENT History: wears glasses/contacts, has top & bottom dentures Cardiovascular History: Reports: Hypertension Other Cardiovascular History: 1 episode of A-fib approx 2 years ago Respiratory History: Reports: None Gastrointestinal History: Reports: Hepatitis Genitourinary History: Reports: None [employer] History: Reports: None Musculoskeletal History: Reports: Arthritis Neurological History: Reports: None Psychiatric History: Reports: None Endocrine/Metabolic History: Reports: Obesity/BMI 30+ Hematologic History: Reports: None Immunologic History: Reports: None Oncologic (Cancer) History: Reports: None Dermatologic History: Reports: None - Infectious Disease History Infectious Disease History: Reports: Novel Coronavirus - Past Surgical History Head Surgeries/Procedures: Reports: None HEENT Surgical History: Reports: Oral Surgery, Tonsillectomy Cardiovascular Surgical History: Reports: None Respiratory Surgical History: Reports: None GI Surgical History: Reports: None Female Surgical History: Reports: Other (See Below) Other Female Surgeries/Procedures: hx of diagnostic laparoscopy Endocrine Surgical History: Reports: None Neurological Surgical History: Reports: None Musculoskeletal Surgical History: Reports: Arthroscopic Knee, Other (See Below) Other Musculoskeletal Surgeries/Procedures:: R total knee DEC 2020, 3 wks ago had prostesis taken out and anitbiotic pump put in. Oncologic Surgical History: Reports: None Dermatological Surgical History: Reports: None Social & Family History - Family History Family Medical History: No Pertinent Family History - Tobacco Use Tobacco Use Status *Q: Never Tobacco User Second Hand Smoke Exposure: No - Caffeine Use Caffeine Use: Reports: Coffee, Soda - Recreational Drug Use Recreational Drug Use: No Review of Systems - Review of Systems Review Of Systems: See Below ED EXAM, GENERAL - Physical Exam Exam: See Below Course - Vital Signs Last Recorded V/S: Last Vital Signs Temp 36.7 C 11/15/21 00:02 Pulse 124 H 11/15/21 02:10 Resp 16 11/15/21 02:10 BP 190/118 H 11/15/21 02:10 Pulse Ox 96 11/15/21 02:10 - Orders/Labs/Meds Orders: Active Orders 24 hr Category Date Time Status CULTURE BLOOD [BC] Stat Lab 11/15/21 01:07 Received CULTURE BLOOD [BC] Stat Lab 11/15/21 01:24 Results Lactated Ringers [Ringers, Lactated] 1,000 ml Med 11/15/21 03:09 Ordered IV STAT Pharmacy to Dose - Vancomycin Med 11/15/21 02:23 Pending 1 dose .XX ONETIME STA VANCOmycin 2 GM/400 ML 2 gm Med 11/15/21 02:30 Active Premix Bag 1 bag IV NOW Blood Culture x2 Reflex Set [OM.PC] Stat Oth 11/15/21 00:53 Ordered Medication Orders Vancomycin HCl 2 gm/ Premix 400 mls @ 200 mls/hr IV NOW ONE Stop: 11/15/21 04:29 Last Admin: 11/15/21 03:09 Dose: 200 mls/hr Documented by: GÉNESIS Lactated Ringer's (Ringers, Lactated) 1,000 mls @ 150 mls/hr IV STAT STA Stop: 11/15/21 09:48 Vancomycin HCl (Pharmacy To Dose - Vancomycin) 1 dose .XX ONETIME STA Stop: 11/15/21 02:24 Labs: Laboratory Tests 11/15/21 11/15/21 11/15/21 Range/Units 00:17 00:17 00:17 WBC 17.96 H (4.0-11.0) K/uL RBC 3.29 L (4.30-5.90) M/uL Hgb 10.3 L (12.0-16.0) g/dL Hct 31.8 L (36.0-46.0) % MCV 96.7 (80.0-98.0) fL MCH 31.3 (27.0-32.0) pg MCHC 32.4 (31.0-37.0) g/dL RDW Std Deviation 41.6 (28.0-62.0) fl RDW Coeff of Daysi 12 (11.0-15.0) % Plt Count 438 H (150-400) K/uL MPV 9.30 (7.40-12.00) fL Add Manual Diff YES Neutrophils % (Manual) 66 (48.0-80.0) % Lymphocytes % (Manual) 21 (16.0-40.0) % Monocytes % (Manual) 11 (0.0-15.0) % Eosinophils % (Manual) 2 (0.0-7.0) % Absolute Seg Neuts 11.9 H (1.4-5.7) Lymphocytes # (Manual) 3.8 H (0.6-2.4) Monocytes # (Manual) 2.0 H (0.0-0.8) Eosinophils # (Manual) 0.4 (0.0-0.7) ESR 65 H (0-29) mm/hr INR Sodium 131 L (136-145) mmol/L Potassium 3.7 (3.5-5.1) mmol/L Chloride 95 L (98-107) mmol/L Carbon Dioxide 23.7 (21.0-32.0) mmol/L BUN 15 (7.0-18.0) mg/dL Creatinine 1.1 H (0.6-1.0) mg/dL Est Cr Clr Drug Dosing 60.39 mL/min Estimated GFR (MDRD) 51.6 ml/min Glucose 186 H (74-106) mg/dL Lactic Acid (0.4-2.0) mmol/L Calcium 9.2 (8.5-10.1) mg/dL Total Bilirubin (0.2-1.0) mg/dL C-Reactive Protein 2.70 H (0.00-0.90) mg/dL Influenza Type A RNA (NEGATIVE) Influenza Type B RNA (NEGATIVE) SARS-CoV-2 RNA (BECCA) (NEGATIVE) 11/15/21 11/15/21 11/15/21 Range/Units 00:17 00:17 02:04 WBC (4.0-11.0) K/uL RBC (4.30-5.90) M/uL Hgb (12.0-16.0) g/dL Hct (36.0-46.0) % MCV (80.0-98.0) fL MCH (27.0-32.0) pg MCHC (31.0-37.0) g/dL RDW Std Deviation (28.0-62.0) fl RDW Coeff of Daysi (11.0-15.0) % Plt Count (150-400) K/uL MPV (7.40-12.00) fL Add Manual Diff Neutrophils % (Manual) (48.0-80.0) % Lymphocytes % (Manual) (16.0-40.0) % Monocytes % (Manual) (0.0-15.0) % Eosinophils % (Manual) (0.0-7.0) % Absolute Seg Neuts (1.4-5.7) Lymphocytes # (Manual) (0.6-2.4) Monocytes # (Manual) (0.0-0.8) Eosinophils # (Manual) (0.0-0.7) ESR (0-29) mm/hr INR 1.13 Sodium (136-145) mmol/L Potassium (3.5-5.1) mmol/L Chloride (98-107) mmol/L Carbon Dioxide (21.0-32.0) mmol/L BUN (7.0-18.0) mg/dL Creatinine (0.6-1.0) mg/dL Est Cr Clr Drug Dosing mL/min Estimated GFR (MDRD) ml/min Glucose (74-106) mg/dL Lactic Acid 1.1 (0.4-2.0) mmol/L Calcium (8.5-10.1) mg/dL Total Bilirubin 1.6 H (0.2-1.0) mg/dL C-Reactive Protein (0.00-0.90) mg/dL Influenza Type A RNA (NEGATIVE) Influenza Type B RNA (NEGATIVE) SARS-CoV-2 RNA (BECCA) (NEGATIVE) 11/15/21 Range/Units 02:20 WBC (4.0-11.0) K/uL RBC (4.30-5.90) M/uL Hgb (12.0-16.0) g/dL Hct (36.0-46.0) % MCV (80.0-98.0) fL MCH (27.0-32.0) pg MCHC (31.0-37.0) g/dL RDW Std Deviation (28.0-62.0) fl RDW Coeff of Daysi (11.0-15.0) % Plt Count (150-400) K/uL MPV (7.40-12.00) fL Add Manual Diff Neutrophils % (Manual) (48.0-80.0) % Lymphocytes % (Manual) (16.0-40.0) % Monocytes % (Manual) (0.0-15.0) % Eosinophils % (Manual) (0.0-7.0) % Absolute Seg Neuts (1.4-5.7) Lymphocytes # (Manual) (0.6-2.4) Monocytes # (Manual) (0.0-0.8) Eosinophils # (Manual) (0.0-0.7) ESR (0-29) mm/hr INR Sodium (136-145) mmol/L Potassium (3.5-5.1) mmol/L Chloride (98-107) mmol/L Carbon Dioxide (21.0-32.0) mmol/L BUN (7.0-18.0) mg/dL Creatinine (0.6-1.0) mg/dL Est Cr Clr Drug Dosing mL/min Estimated GFR (MDRD) ml/min Glucose (74-106) mg/dL Lactic Acid (0.4-2.0) mmol/L Calcium (8.5-10.1) mg/dL Total Bilirubin (0.2-1.0) mg/dL C-Reactive Protein (0.00-0.90) mg/dL Influenza Type A RNA NEGATIVE (NEGATIVE) Influenza Type B RNA NEGATIVE (NEGATIVE) SARS-CoV-2 RNA (BECCA) NEGATIVE (NEGATIVE) Meds: Medications Generic Name Dose Route Start Last Admin Trade Name Freq PRN Reason Stop Dose Admin Vancomycin HCl 2 gm/ Premix 400 mls @ 200 mls/hr 11/15/21 02:30 11/15/21 03:09 IV 11/15/21 04:29 200 mls/hr NOW ONE Administration Lactated Ringer's 1,000 mls @ 150 mls/hr 11/15/21 03:09 Ringers, Lactated IV 11/15/21 09:48 STAT STA Vancomycin HCl 1 dose 11/15/21 02:23 Pharmacy To Dose - Vancomycin .XX 11/15/21 02:24 ONETIME STA Discontinued Medications Generic Name Dose Route Start Last Admin Trade Name Freq PRN Reason Stop Dose Admin Hydromorphone HCl 1 mg 11/15/21 00:45 11/15/21 01:11 Hydromorphone 1 Mg/Ml Syringe IVPUSH 11/15/21 00:46 1 mg ONETIME ONE Administration Piperacillin Sod/Tazobactam 100 mls @ 100 mls/hr 11/15/21 00:53 11/15/21 01:31 Sod 4.5 gm/ Sodium Chloride IV 11/15/21 01:52 100 mls/hr ONETIME ONE Administration Lactated Ringer's 1,000 mls @ 999 mls/hr 11/15/21 00:54 11/15/21 01:10 Ringers, Lactated IV 11/15/21 01:54 999 mls/hr STAT STA Administration Morphine Sulfate 4 mg 11/15/21 00:03 11/15/21 00:17 Morphine 4 Mg/Ml Vial IVPUSH 11/15/21 00:04 4 mg ONETIME ONE Administration Departure - Departure Time of Disposition: 03:13 Disposition: DC/Tfer to Acute Hospital 02 Condition: Serious Clinical Impression: Septic arthritis of knee - Discharge Information Referrals: PCP,None [Primary Care Provider] - Sepsis Event Note (ED) - Evaluation Sepsis Screening Result: No Definite Risk - Focused Exam Vital Signs: Vital Signs Temp Pulse Resp BP Pulse Ox 11/15/21 02:10 124 H 16 190/118 H 96 11/15/21 01:14 121 H 20 189/86 H 100 11/15/21 00:02 36.7 C 135 H 18 167/144 H 98 - My Orders Last 24 Hours: My Active Orders 11/15/21 00:53 Blood Culture x2 Reflex Set [OM.PC] Stat 11/15/21 01:07 CULTURE BLOOD [BC] Stat 11/15/21 01:24 CULTURE BLOOD [BC] Stat 11/15/21 02:23 Pharmacy to Dose - Vancomycin 1 dose .XX ONETIME STA 11/15/21 02:30 VANCOmycin 2 GM/400 ML 2 gm Premix Bag 1 bag IV NOW 11/15/21 03:09 Lactated Ringers [Ringers, Lactated] 1,000 ml IV STAT - Assessment/Plan Last 24 Hours: My Active Orders 11/15/21 00:53 Blood Culture x2 Reflex Set [OM.PC] Stat 11/15/21 01:07 CULTURE BLOOD [BC] Stat 11/15/21 01:24 CULTURE BLOOD [BC] Stat 11/15/21 02:23 Pharmacy to Dose - Vancomycin 1 dose .XX ONETIME STA 11/15/21 02:30 VANCOmycin 2 GM/400 ML 2 gm Premix Bag 1 bag IV NOW 11/15/21 03:09 Lactated Ringers [Ringers, Lactated] 1,000 ml IV STAT
[2021-11-15] MEDS ORDERED: HYDROmorphone 1 MG/ML Syringe ONE ×2 (04:14→09:13)
[2021-11-15] MEDS ORDERED: VANCOmycin 1.5 GM/300 ML 1.5 GM in Premix Bag 1 BAG IV SCH (15:00)
== END 2021-11-15 09:25 ==
LOC: MW.ED 23:52
DX: M00.861 Arthritis due to other bacteria, right knee (principal); B96.89 Other specified bacterial agents as the cause of diseases classified elsewhere; E66.9 Obesity, unspecified; Z20.822 Contact with and (suspected) exposure to COVID-19; Z68.29 Body mass index [BMI] 29.0-29.9, adult
CPT/HCPCS: 0240U; 36415; 51702; 73562; 80048; 82247; 83605; 85025; 85610; 85652; 86140; 87040; 96365; 96366; 96367; 96375; 96376; 99285; J1170; J2270; J2543; J3370; J7120

== ENCOUNTER 2022-10-26 12:28 | Emergency (ER) | payer MEDICAID ==
[2022-10-26] MEDS ORDERED: Bacitracin Oint 1 GM U/D Packet TOP ONE (16:35)
[2022-10-26] MEDS ORDERED: Amoxicillin/Clavulanate K 875-125 MG Tab PO ONE (16:40)
== END 2022-10-26 17:11 | disposition home or self-care (01) ==
LOC: MW.ED 12:28
DX: S61.451A Open bite of right hand, initial encounter (principal); I10 Essential (primary) hypertension; I48.91 Unspecified atrial fibrillation; M19.90 Unspecified osteoarthritis, unspecified site; E66.9 Obesity, unspecified; Z68.30 Body mass index [BMI] 30.0-30.9, adult; Z87.891 Personal history of nicotine dependence; Z79.82 Long term (current) use of aspirin; Z79.899 Other long term (current) drug therapy; Z96.651 Presence of right artificial knee joint; W54.0XXA Bitten by dog, initial encounter
CPT/HCPCS: 99283; A9270

== ENCOUNTER 2023-10-08 09:26 | Emergency (ER) | payer MEDICAID ==
[2023-10-08] MEDS ORDERED: Sodium Chloride 0.9% 1,000 ML IV ONE (09:57)
[2023-10-08] MEDS ORDERED: Ondansetron 4 MG/2 ML SDV IVPUSH ONE (09:57)
[2023-10-08] MEDS ORDERED: Sodium Chloride 0.9% 2.5 ML Syringe FLUSH PRN (09:57)
[2023-10-08] MEDS ORDERED: Sodium Chloride 0.9% 10 ML Syringe FLUSH PRN (09:57)
[2023-10-08] MEDS ORDERED: Ibuprofen 600 MG Tab PO ONE (09:59)
[2023-10-08] MEDS ORDERED: Diltiazem 25 MG/5 ML SDV IVPUSH ONE (10:40)
[2023-10-08 10:55] LABS: BASOPHILS ABSOLUTE AUTO 0.02 K/uL (0.00-0.20); BASOPHILS PERCENT AUTO 0.3 % (0.0-1.0); EOSINOPHILS ABSOLUTE AUTO 0.01 K/uL (0.00-0.45); EOSINOPHILS PERCENT AUTO 0.2 % (0.0-6.0); HEMATOCRIT 43.1 % (37.0-47.0); HEMOGLOBIN 15.3 g/dL (12.0-16.0); IMMATURE GRAN ABSOLUTE AUTO 0.01 K/uL (0.00-0.05); IMMATURE GRAN PERCENT AUTO 0.2 % (0.0-0.4); LYMPHOCYTES ABSOLUTE AUTO 0.89 K/uL (1.00-4.80); LYMPHOCYTES PERCENT AUTO 13.7 % (24.0-44.0); MEAN CORPUSCULAR HEMOGLOBIN 33.3 pg (28.0-32.0); MEAN CORPUSCULAR HGB CONC 35.5 g/dL (32.0-36.0); MEAN CORPUSCULAR VOLUME 93.9 fL (83.0-99.0); MEAN PLATELET VOLUME 9.8 fL (9.4-12.3); MONOCYTES ABSOLUTE AUTO 0.42 K/uL (0.00-0.80); MONOCYTES PERCENT AUTO 6.4 % (0.0-8.0); NEUTROPHILS ABSOLUTE AUTO 5.17 K/uL (1.80-7.70); NEUTROPHILS PERCENT AUTO 79.2 % (41.0-71.0); PLATELET COUNT,PLT 220 K/uL (150-400); RED BLOOD CELL COUNT 4.59 M/uL (4.10-5.30); WHITE BLOOD CELL COUNT,WBC 6.52 K/uL (3.9-11.3)
[2023-10-08 10:57] LABS: BILIRUBIN,URINE NEGATIVE (NEGATIVE); COLOR,URINE YELLOW; GLUCOSE,URINE NEGATIVE (NEGATIVE); KETONES,URINE TRACE mg/dL (NEGATIVE); LEUKOCYTE ESTERASE,URINE NEGATIVE (NEGATIVE); NITRITE,URINE POSITIVE (NEGATIVE); OCCULT BLOOD,URINE TRACE-INTACT (NEGATIVE); PROTEIN,URINE 100 mg/dL (NEGATIVE); UROBILINOGEN,URINE 0.2 EU/dL (<2.0)
[2023-10-08 11:05] LABS: AMPHETAMINES SCREEN, URINE NEGATIVE (CUTOFF=500); BARBITURATE SCREEN,URINE NEGATIVE (CUTOFF=200); BENZODIAZEPINES SCREEN,URINE NEGATIVE (CUTOFF=150); BUPRENORPHINE SCREEN,URINE NEGATIVE (CUTOFF=10); METHADONE SCREEN, URINE NEGATIVE (CUTOFF=200); METHAMPHETAMINES SCREEN, URINE NEGATIVE (CUTOFF=500); OXYCODONE SCREEN,URINE NEGATIVE (CUT0FF=100); PCP SCREEN,URINE NEGATIVE (CUTOFF=25); THC SCREEN,URINE 20 NG/ML PRESUMPTIVE POSITIVE (CUTOFF=50)
[2023-10-08 11:07] LABS: INR 1.12 (0.86-1.11)
[2023-10-08 11:08] LABS: APPEARANCE,URINE HAZY
[2023-10-08 11:21] LABS: A/G RATIO 0.9 (0.9-1.6); ALANINE AMINOTRANSFERASE,ALT 31 IU/L (14-63); ALBUMIN 4.3 g/dL (3.4-5.0); ALKALINE PHOSPHATASE 119 U/L (46-116); ASPARTATE AMNIOTRANSFERASE,AST 25 IU/L (15-37); BACTERIA,URINE MANY (NEGATIVE); BILIRUBIN TOTAL 0.5 mg/dL (0.2-1.0); BLOOD UREA NITROGEN,BUN 10 mg/dL (7.0-18.0); CALCIUM 9.9 mg/dL (8.5-10.1); CARBON DIOXIDE,CO2 23.9 mmol/L (21.0-32.0); CHLORIDE,CL 97 mmol/L (98-107); EPITHELIAL CELLS,URINE MODERATE (NONE-FEW); EST CRCL DRUG DOSING (CG) 64.87 mL/min; ETHANOL BLOOD MEDICAL <3 mg/dL; GLUCOSE RANDOM 164 mg/dL (74-106); LIPASE 38 U/L (16-77); POTASSIUM,K 3.7 mmol/L (3.5-5.1); PROTEIN TOTAL,TP 9.1 g/dL (6.4-8.2); SODIUM,NA 135 mmol/L (136-145)
[2023-10-08 11:22] LABS: ESTIMATED GFR 66 mL/min (>60)
[2023-10-08] MEDS ORDERED: Iopamidol 755 MG/ML 500 ML Multipack Bottle IVPUSH STA (11:51)
[2023-10-08 12:04] LABS: CORONAVIRUS COVID-19 NAA POSITIVE (NEGATIVE); INFLUENZA A NAA NEGATIVE (NEGATIVE); INFLUENZA B NAA NEGATIVE (NEGATIVE); RESPIRATORY SYNCYTIAL VIR NAA NEGATIVE (NEGATIVE)
[2023-10-08 12:45] LABS: LACTIC ACID 1.4 mmol/L (0.4-2.0)
[2023-10-08] MEDS ORDERED: Metoprolol Succinate 100 MG Tab.ER PO ONE (13:03)
== END 2023-10-08 14:12 | disposition home or self-care (01) ==
LOC: MW.ED 09:26
DX: U07.1 COVID-19 (principal); I10 Essential (primary) hypertension; I48.91 Unspecified atrial fibrillation; M19.90 Unspecified osteoarthritis, unspecified site; E66.9 Obesity, unspecified; Z68.29 Body mass index [BMI] 29.0-29.9, adult; Z86.16 Personal history of COVID-19; Z79.82 Long term (current) use of aspirin; Z79.899 Other long term (current) drug therapy
CPT/HCPCS: 0241U; 36415; 70450; 71045; 74177; 80053; 80305; 80307; 81001; 83605; 83690; 84484; 85025; 85610; 93005; 96361; 96374; 96375; 99291; A9270; J2405; J3490; J7030; Q9967; 93010

== ENCOUNTER 2025-10-24 00:14 | Emergency (ER) | payer MEDICAID ==
[2025-10-24] MEDS ORDERED: droPERidol 2.5 MG/ML SDV IM ONE (00:17)
[2025-10-24] MEDS ORDERED: Sodium Chloride 0.9% 2.5 ML Syringe FLUSH PRN (00:22)
[2025-10-24] MEDS ORDERED: Sodium Chloride 0.9% 10 ML Syringe FLUSH PRN (00:22)
[2025-10-24] MEDS ORDERED: droPERidol 2.5 MG/ML SDV IM PRN (00:23)
[2025-10-24] MEDS: droPERidol 2.5 MG/ML SDV IVPUSH ONE (00:34)
[2025-10-24 00:35] LABS: BASOPHILS ABSOLUTE AUTO 0.06 K/uL (0.00-0.20); BASOPHILS PERCENT AUTO 0.7 % (0.0-1.0); EOSINOPHILS ABSOLUTE AUTO 0.41 K/uL (0.00-0.45); EOSINOPHILS PERCENT AUTO 4.7 % (0.0-6.0); IMMATURE GRAN ABSOLUTE AUTO 0.02 K/uL (0.00-0.05); IMMATURE GRAN PERCENT AUTO 0.2 % (0.0-0.4); LYMPHOCYTES ABSOLUTE AUTO 2.92 K/uL (1.00-4.80); LYMPHOCYTES PERCENT AUTO 33.8 % (24.0-44.0); MEAN PLATELET VOLUME 9.9 fL (9.4-12.3); MONOCYTES ABSOLUTE AUTO 0.92 K/uL (0.00-0.80); MONOCYTES PERCENT AUTO 10.6 % (0.0-8.0); NEUTROPHILS ABSOLUTE AUTO 4.32 K/uL (1.80-7.70); NEUTROPHILS PERCENT AUTO 50.0 % (41.0-71.0); NRBC ABSOLUTE 0.00 K/uL (0.00-0.02); NRBC PERCENT 0.0 /100WBC (0.0-0.2); PLATELET COUNT,PLT 266 K/uL (150-400); RED BLOOD CELL COUNT 4.62 M/uL (4.10-5.30); WHITE BLOOD CELL COUNT,WBC 8.65 K/uL (3.9-11.3)
[2025-10-24] MEDS: Diphtheria,Pertussis(Acell),Tetanus Vaccine 0.5 ML Syringe IM ONE (00:38)
[2025-10-24] MEDS: Ketorolac 30 MG/ML SDV IVPUSH ONE ×2 (00:40→02:11)
[2025-10-24 00:47] LABS: INR 1.06 (0.86-1.11)
[2025-10-24 00:59] LABS: A/G RATIO 0.9 (0.9-1.6); ALANINE AMINOTRANSFERASE,ALT 32.0 IU/L (14-63); ASPARTATE AMNIOTRANSFERASE,AST 24.0 IU/L (15-37); BILIRUBIN TOTAL 0.3 mg/dL (0.2-1.0); BLOOD UREA NITROGEN,BUN 18.0 mg/dL (7.0-18.0); CARBON DIOXIDE,CO2 21.7 mmol/L (21.0-32.0); CHLORIDE,CL 102.0 mmol/L (98-107); CREATININE 1.2 mg/dL (0.6-1.0); EST CRCL DRUG DOSING (CG) 52.75 mL/min; ESTIMATED GFR 52.0 mL/min (>60); GLUCOSE RANDOM 124.0 mg/dL (74-106); POTASSIUM,K 3.9 mmol/L (3.5-5.1); PROTEIN TOTAL,TP 8.5 g/dL (6.4-8.2); SODIUM,NA 138.0 mmol/L (136-145)
[2025-10-24] MEDS ORDERED: Amoxicillin/Clavulanate K 875-125 MG Tab PO ONE (01:18)
[2025-10-24] MEDS ORDERED: Ampicillin/Sulbactam Na 3 GM in Sodium Chloride 0.9% 100 ML IV ONE (01:25)
[2025-10-24] MEDS: Amoxicillin/Clavulanate K 875-125 MG Tab PO ONE (01:55)
[2025-10-24] MEDS: Labetalol 100 MG/20 ML MDV IVPUSH ONE (03:58)
== END 2025-10-24 04:50 | disposition home or self-care (01) ==
LOC: MW.ED 00:14
DX: S52.602A Unspecified fracture of lower end of left ulna, initial encounter for closed fracture (principal); S41.151A Open bite of right upper arm, initial encounter; S51.852A Open bite of left forearm, initial encounter; S41.131A Puncture wound without foreign body of right upper arm, initial encounter; F41.0 Panic disorder [episodic paroxysmal anxiety]; I10 Essential (primary) hypertension; E66.9 Obesity, unspecified; Z68.29 Body mass index [BMI] 29.0-29.9, adult; Z86.16 Personal history of COVID-19; Z79.899 Other long term (current) drug therapy; Z23 Encounter for immunization
CPT/HCPCS: 29125; 36415; 73060; 73090; 73110; 80053; 85025; 85610; 90471; 90715; 96374; 96375; 96376; 99283; A9270; J1790; J1885; 99284